=== PATIENT | female | born 1990 | race Caucasian/White ===

== ENCOUNTER 2018-08-16 19:34 | Emergency (ER) | payer OTHER, SELFPAY ==
[2018-08-16 19:34] VITALS: BP 152/86; PULSE 87; RESP 16; TEMP 36.1; O2SAT 98; BMI 22.7
[2018-08-16 20:26] VITALS: RESP 16
[2018-08-16 20:45] LABS: Absolute Lymphocyte Count 2.12 X10^3/ul (0.83-4.51); Absolute Neutrophil Count 3.9 X10^3/uL (2.0-7.7); Basophil# 0.03 X10^3/uL; Basophil% 0.4 % (0-1); Eosinophil# 0.13 X10^3/uL; Eosinophils% 1.9 % (0-5); Hemoglobin 10.7 g/dl (12.0-15.0); Lymphocyte # 2.12 X10^3/ul (4.0); Lymphocyte % 31.7 % (19-41); Mean Corp Hgb Conc 31.5 g/gl (32-36); Mean Corpuscular Hgb 27.9 pg (27.0-32.0); Mean Corpuscular Volume 88.5 fL (81-99); Mean Platelet Vol. 10.1 fl (6.2-12.0); Monocyte# 0.46 X10^3/uL; Monocyte% 6.9 % (0-10); Neutrophil # 3.92 X10^3/uL (2.7-7.7); Neutrophil % 58.8 % (47-70); Platelet Count 384 K/mm3 (150-450); RBC Distribution Width CV 14.7 % (11.6-14.6); RBC Distribution Width SD 46.6 fl (35.1-43.9); Red Blood Count 3.84 M/mm3 (4.2-5.4); White Blood Count 6.7 K/mm3 (4.4-11.0)
[2018-08-16 20:46] LABS: POSITIVE COUNT NO; POSITIVE DIFFERENTIAL NO; POSITIVE MORPHOLOGY NO
[2018-08-16 20:54] LABS: Bacteria 0 SEEN /hpf (None Seen); Color, Urine Yellow (Yellow); Glucose, Dipstick Normal (Normal); Ketone-Dipstick Negative (Negative); Leukocyte Esterase-Dipstick 25 /ul (Negative); Mucous, Urine 0 SEEN /hpf (<or=2+); Nitrite-Dipstick Negative (Negative); Occult Blood-Urine Negative /ul (Negative); Protein-Dipstick Negative (Negative); Red Blood Cells-Urine 0 SEEN /hpf (0-5); Specific Gravity, Urine 1.005 (1.002-1.030); Urine Bilirubin Dipstick Negative (Negative); Urine Clarity Sl. Cloudy (Clear); Urine Urobilinogen Normal (Normal)
[2018-08-16 20:59] LABS: AST(SGOT) 15 U/L (15-37); Alanine Aminotransfer ALT/SGPT 20 U/L (13-56); Albumin, Serum 3.4 g/dL (3.2-5.0); Alkaline Phosphatase 54 U/L (45-117); Anion Gap 7 (5-15); BUN 12 mg/dL (7-18); BUN/Creat Ratio 18.6 RATIO (10-20); Bilirubin, Direct 0.07 mg/dL (0.00-0.30); Calcium,Total 8.5 mg/dL (8.5-10.1); Chloride 108 mmol/L (98-107); Creatinine, Serum 0.65 mg/dL (0.55-1.02); EST Glomerular Filtration Rate 114 mL/min (>60); Est Glom Filt Rate - Afr Amer 138 mL/min (>60); Estimated Creatinine Clearance 123.07 ml/min; Globulin 3.1 g/dL (2.2-4.2); Glucose 96 mg/dL (74-106); Potassium 3.9 mmol/L (3.5-5.1); Protein, Total 6.5 g/dL (6.4-8.2); Sodium Level 139 mmol/L (136-145)
[2018-08-16 21:04] LABS: Squamous Epithelial Cells - UA 0-5 SEEN /hpf (5-10); White Blood Cells 0-5 SEEN /hpf (0-5)
[2018-08-16 21:07] LABS: Pregnancy, Serum, hCG Quali. NEGATIVE Negative (0-9 Nonpreg)
[2018-08-16] MEDS: 0.9% Normal Saline 1,000 ML 150 ML IV (21:23)
--- NOTE | 2018-08-16 21:28 | ED.VISSUMM ---
- ER Visit Summary Date of Service: 08/16/18 Chief Complaint: Sinus problems History of Present Illness: The patient is a 28 F with a history of bipolar disorder. Patient was discharged from a [facility] in [place] last week. She presents feeling tired, congestion, difficulty breathing through her nose, and increased salivation in her mouth. She is also complaining of her neck feeling weak. Patient states while in the hospital her lithium dose was decreased. She was also started on Invega, Risperdal, and trazodone. She is not sure if she has a sinus infection or if this is potentially side effects of her medication. She is scheduled to see the counseling center next week. She has not had fever or chills. Physical Examination: Blood pressure is 152/86, other vitals normal. Patient is lying in bed. She is in no acute distress. Head neck examination reveals TMs to be clear bilaterally. She has moist mucous membranes. No cervical lymphadenopathy. No significant tenderness over the sinuses. Heart is regular rate and rhythm. Lungs sounds are clear. Abdomen is soft nontender. Test Results: CBC was normal white count with hemoglobin 10.7. Chemistry studies normal. LFTs and lipase normal. Urinalysis normal. test negative. [place] level is 0.20. Emergency Department Course and Treatment: I did review the common side effects of the medications she is currently on. Multiple of these medications cause somnolence, URI symptoms, and sialorrhea. I advised her I do not believe she is an acute sinus infection, but is experiencing some side effects of her new medications. She will be given nasal spray to help open her nasal passages. She is to follow-up with the counseling center this week as planned. Treatment Plan: [] Disposition: Discharge Impression: 1. Viral URI 2. Medication side effects This note was generated with [employer] dictation software. It may contain incorrect words, spelling, and punctuation that were not noted in review of the chart prior to signing ED Disposition - Plan for ED Patient: Disposition: Home or Assisted Living Chief Complaint: Cold Sx Instructions: ED Drug React Adverse Other, ED URI Viral Referrals: Counseling,Center [GROUP OF PHYSICIANS] - Keep Waqas appointment
--- NOTE | 2018-08-16 21:28 | ED.DEP ---
ED Disposition - Plan for ED Patient: Disposition: Home or Assisted Living Chief Complaint: Cold Sx Instructions: ED URI Viral, ED Drug React Adverse Other Referrals: Counseling,Center [GROUP OF PHYSICIANS] - Keep Waqas appointment
[2018-08-16 21:31] VITALS: PULSE 71; RESP 16; O2SAT 99
== END 2018-08-16 21:37 | disposition home or self-care (01) ==
PROVIDERS: Emergency Provider Emergency Medicine
DX: J06.9 Acute upper respiratory infection, unspecified (principal); K11.7 Disturbances of salivary secretion; R40.0 Somnolence; T43.595A Adverse effect of other antipsychotics and neuroleptics, initial encounter; T43.215A Adverse effect of selective serotonin and norepinephrine reuptake inhibitors, initial encounter; F31.9 Bipolar disorder, unspecified; K21.9 Gastro-esophageal reflux disease without esophagitis; Z72.0 Tobacco use; Z79.899 Other long term (current) drug therapy
CPT/HCPCS: 80048; 80076; 80178; 81001; 84703; 85025; 96360; 99284; J7030; J7040; A4216

== ENCOUNTER 2018-10-01 09:18 | Emergency (ER) | payer MEDICAID, SELFPAY ==
[2018-10-01] VITALS (7 sets, daily range): BP systolic 117–145; BP diastolic 61–90; PULSE 67–100; RESP 16–18; TEMP 36.9; O2SAT 96–99; BMI 23.8
--- NOTE | 2018-10-01 10:01 | NURSING ---
CALLED CRISIS ABOUT PATIENT PER DR RONDON
--- NOTE | 2018-10-01 10:11 | ED.DCSUM_ITS ---
- ER Visit Summary Date of Service: 10/01/18 Chief Complaint: Depressed and suicidal History of Present Illness: The patient is a 28 F history depression and bipolar disorder. Patient states she had exacerbation of bipolar about 6 weeks ago where she was manic and had to be hospitalized. Now she states she is depressed and suicidal. No specific inciting event. She has been depressed and suicidal before but is never had any prior attempts. States that she does think about it now but is made no attempt. She is currently on lithium and Risperdal and states she is taking her medications. She sees a counseling center. Physical Examination: Young female no acute distress. Vital signs are stable and afebrile. No signs of toxidrome. No smell of alcohol. She is lying in bed. She is not violent or verbally abusive. Family members in the room. HEENT exam unremarkable. No signs of trauma to her face. Moist mucous membranes. Neck nontender. No signs of ligature tubbs. Lungs clear to auscultation bilaterally. Chest nontender. Heart regular rate and rhythm no murmur. Abdomen soft nontender. Patient is moving all 4 extremities. Neurovascularly intact. Nontender no edema. No signs of track tubbs. No signs of cutting or trauma or scars. Back nontender. Neurologically she is awake and alert with no focal motor deficits. Test Results: ED mental health screening labs. CBC White count 6. Hemoglobin 9.8. Electrolytes unremarkable. Normal gap. Normal creatinine. Serum test negative. Tox and alcohol level are negative. Emergency Department Course and Treatment: ED mental health labs and crisis evaluation. Repeat exam patient is doing well 1144. She is already spoken with counseling center personnel and they believe she needs to be admitted. I am comfortable with that plan. Treatment Plan: Transfer to psychiatric facility. Disposition: [] Impression: Acute exacerbation of bipolar disorder Depression Suicidal ideation This note was generated with [employer] dictation software. It may contain incorrect words, spelling, and punctuation that were not noted in review of the chart prior to signing ED Disposition - Plan for ED Patient: Chief Complaint: Suicidal Referrals: Care Physician,No Primary [Primary Care Provider] -
[2018-10-01 10:21] LABS: Absolute Lymphocyte Count 1.43 X10^3/ul (0.83-4.51); Absolute Neutrophil Count 4.2 X10^3/uL (2.0-7.7); Basophil# 0.04 X10^3/uL; Basophil% 0.6 % (0-1); Eosinophils% 1.6 % (0-5); Hematocrit 37.6 % (37-47); Hemoglobin 11.8 g/dl (12.0-15.0); Lymphocyte # 1.43 X10^3/ul (4.0); Lymphocyte % 23.1 % (19-41); Mean Corp Hgb Conc 31.4 g/gl (32-36); Mean Corpuscular Hgb 27.6 pg (27.0-32.0); Mean Corpuscular Volume 87.9 fL (81-99); Mean Platelet Vol. 9.5 fl (6.2-12.0); Monocyte% 6.5 % (0-10); Neutrophil # 4.22 X10^3/uL (2.7-7.7); Platelet Count 346 K/mm3 (150-450); RBC Distribution Width CV 14.5 % (11.6-14.6); RBC Distribution Width SD 46.4 fl (35.1-43.9); Red Blood Count 4.28 M/mm3 (4.2-5.4); White Blood Count 6.2 K/mm3 (4.4-11.0)
[2018-10-01 10:22] LABS: Anion Gap 6 (5-15); BUN 12 mg/dL (7-18); Calcium,Total 9.1 mg/dL (8.5-10.1); Chloride 110 mmol/L (98-107); Creatinine, Serum 0.71 mg/dL (0.55-1.02); EST Glomerular Filtration Rate 103 mL/min (>60); Est Glom Filt Rate - Afr Amer 125 mL/min (>60); Estimated Creatinine Clearance 112.67 ml/min; Glucose 87 mg/dL (74-106); Potassium 4.1 mmol/L (3.5-5.1); Sodium Level 141 mmol/L (136-145)
[2018-10-01 10:24] LABS: POSITIVE COUNT NO; POSITIVE DIFFERENTIAL NO; POSITIVE MORPHOLOGY NO
[2018-10-01 10:28] LABS: Pregnancy, Serum, hCG Quali. NEGATIVE Negative (0-9 Nonpreg)
--- NOTE | 2018-10-01 10:37 | NURSING ---
SURY, SARAH, CALLED. SHE WILL BE IN WITHIN THE HOUR
--- NOTE | 2018-10-01 11:16 | NURSING ---
SURY, CRISIS, HERE
[2018-10-01 11:23] LABS: Amphetamine Urine VISTA NEGATIVE (<1000 ng/mL); Barbiturate Urine VISTA NEGATIVE (< 200 ng/mL); Benzodiazepine Urine VISTA NEGATIVE (< 200 ng/mL); Cocaine Urine VISTA NEGATIVE (< 300 ng/mL); Ecstacy Urine VISTA NEGATIVE (< 500 ng/mL); Methadone Urine VISTA NEGATIVE (< 300 ng/mL); PCP Urine VISTA NEGATIVE (< 25 ng/mL); THC Urine VISTA NEGATIVE (< 50 ng/mL); Vista UDS pH Range 7
--- NOTE | 2018-10-01 15:56 | NURSING ---
ACCEPTED AT [facility]
--- NOTE | 2018-10-01 16:15 | NURSING ---
1605 CALLED [facility]. ETA IS 20 TO 30 MIN
== END 2018-10-01 16:49 | disposition short-term general hospital (02) ==
PROVIDERS: Emergency Provider Emergency Medicine
DX: F31.9 Bipolar disorder, unspecified (principal); R45.851 Suicidal ideations; K21.9 Gastro-esophageal reflux disease without esophagitis; Z79.899 Other long term (current) drug therapy
CPT/HCPCS: 80048; 80178; 80307; 80320; 84703; 85025; 99284; G0480

== ENCOUNTER 2018-10-15 09:00 | Outpatient (RCR) | payer MEDICAID, SELFPAY ==
[2018-10-01 09:19] VITALS: BMI 23.8
--- NOTE | 2018-10-15 09:02 | BH.SGPN.GN ---
Behaviors/Verbalizations/Mental Status: []Client alert and oriented, neatly and casually dressed and groomed. Eye contact good. Motor activity appropriate. Speech within normal limits. Affect congruent, mood euthymic. Thoughts linear and logical, no signs of hallucinations or delusions. Client Response/Progress/Benefit: []Pt responded well to session as shown by pt listening attentively to others and sharing her feelings with group. Pt reported one of of her mental health wins was being able to write a 12,000 word short story/novel, which pt reported writing is something she has not been able to do due to mental health symptoms. Pt stated another mental health win is preparing her own breakfast and lunches instead of relying on her parents to take care of her. Pt stated current stressor is not knowing what to do when has free time because free time can lead to ruminations and unhealthy coping. Pt identified emotion for today as: hopeful. Pt seemed to benefit from support from peers. Pt to continue IOP to increase healthy coping, identify and replace unhealthy thought patterns, and prevent decompensation. Narrative Note: []
--- NOTE | 2018-10-15 10:05 | BH.SGPN.GN ---
Behaviors/Verbalizations/Mental Status: [Client alert and oriented, dress is casual, grooming appropriate. Eye contact fair to good facing away from .net developer. Motor activity appropriate. Speech monotone and slowed. Affect congruent, mood apathetic. Thoughts linear and logical, no signs of hallucinations or delusions.] Client Response/Progress/Benefit: [Client receptive of session, first day in IOP program and stil adjusting to group environment. Client did well in remaining an observant participant as well as provided input throughout. Client willing to participate in discussion regarding what may cause a crisis and potential impacts of crisis situations on various aspects of life. Client shared that crisis ?feels bad in the moment, but we can learn from it? and went on to reflect that ?it?s about your attitude?. Client benefitted from discussion on warning signs for crisis and completing the warning sign identification worksheet. She shared that personal crisis warning signs include changes in appetite, racing thoughts, crying and isolation. Client progress noted in ability provide input and connect with discussion despite it being first day in IOP program. Continued IOP recommended to increase understanding of symptoms and improve symptom management] Narrative Note: []
--- NOTE | 2018-10-15 11:05 | BH.SGPN.GN ---
Behaviors/Verbalizations/Mental Status: []Client alert and oriented, casually dressed, hygiene fair. Eye contact fair. Motor activity slowed. Speech slowed. Affect flat, mood dysthymic. Thoughts linear, logical, no signs of hallucinations or delusions. Client Response/Progress/Benefit: []Client responded well to session, engaged in discussion. Client further processed her personal crisis warning signs and identified her biggest warning signs for depression and marcelo. Client?s biggest warning signs for depression are isolation and loss of interest and for marcelo they are less sleep and racing thoughts. Client shared feeling guilty for not knowing her warning signs sooner, but with group support she was able to be compassionate with herself. Client helped the group identify healthy coping skills to manage her warning signs such as deep breathing, reaching out to supports, and meditation. ?Client created a crisis kit with visuals that will remind client of healthy coping skills she can use in crisis. Client?s reported her objects will ?remind me to pay attention to warning signs and what I need.? Client appeared to benefit from creating a concrete action plan for warning signs and developing a crisis kit with reminder visuals. Client?s first day in IOP. Client to continue IOP to prevent decompensation and increase mood stability.
--- NOTE | 2018-10-16 09:21 | BH.SGPN.GN ---
Behaviors/Verbalizations/Mental Status: [Client eye contact fair to good, casually dressed, motor activity appropriate, speech monotone, slowed, mood dysthymic and appearing apathetic, congruent affect, thoughts linear and intact, no evidence of delusions or hallucinations] Client Response/Progress/Benefit: [Client receptive of session and providing input throughout as well as asking questions at various points. Client provided input to discussion reviewing the benefits of setting goals and comparing short and long-term goals. Client identified a benefit to goal setting as increasing the likelihood of working towards and accomplishing things, went on to identify that goals help hold us accountable. Identified personal barriers to following through with goals as being uninspired or lacking motivation. Client participated in the review of SMART goal setting criteria and provided insight into the various component of SMART goals. Noted that she connected with the need for goals to be timebound to ensure active progress towards them. Client seemed to benefit from rehearsing setting short-term SMART goals in the group activity and displayed progress in her ability to provide suggestions to the group during the activity. Continued IOP tx to promote increased use of healthy coping, decrease depression, and expand support network.] Narrative Note: []
--- NOTE | 2018-10-16 10:20 | BH.SGPN.GN ---
Behaviors/Verbalizations/Mental Status: [Client eye contact fair to good, casually dressed, motor activity appropriate, speech monotone, slowed, mood dysthymic and appearing apathetic, congruent affect, thoughts linear and intact, no evidence of delusions or hallucinations.] Client Response/Progress/Benefit: [Client was an active participant in group activity and discussion. Client created a mental health related SMART goal for herself to accomplish over the weekend which was to write for 2 hours by Saturday. Reported she believes that this goal will benefit her by increasing confidence and working towards re-engaging in activities she enjoys. Identified obstacles to obtaining her goals as well as solutions to those obstacles. Noted being uninspired as an obstacle but shared that completing a short writing exercise may help inspire her to write. Group provided feedback on if this goal was SMART and client receptive of feedback provided. Benefited from group in regards to education on developing specific, measurable, achievable, relevant, and time-bound goals. Will continue in IOP to prevent decompensation, stabilize mood, and increase coping skills. ] Narrative Note: []
--- NOTE | 2018-10-16 12:49 | BH.PSA_ITS ---
Source of Information - Presenting Problems/Circumstances Problems, Referral Source, Mental Status, Client: Client is a 28-year-old female with a history of bipolar disorder who was referred to [facility] after a recent admission to [facility] for suicidal ideation. Client's most recent hospitalized was from 10/01/18-10/09/18, but she also had a prior hospitalization in July 2018 in [place] due to a manic episode. Client reports history of severe depressive symptoms following episodes of marcelo. Client reported after d ischarging in July her depressive symptoms began to decompensate and she experienced suicidal ideations with a plan in September. Client was stabilized and they got my meds figured out. Client shared since being discharged on 10/09/18 her mood has improved. Client had to move back to [place] to live with her parents to stabilize symptoms after her manic episode in July. Client denies active suicidal ideations, plan, or intent. client denies homicidal ideations. Client denies current substance use. Due to recent psychiatric admission, client would benefit from step down treatment and [facility] level of care. Client cooperative during assessment. Eye contact fair, motor activity slowed. Affect flat, mood dysthymic. Psychiatric Presentation - Psych Issues & Need for Admission Psychiatric Issues:: bipolar 1 disorder, recent depressive episode and inpatient hospitalization; history of three manic episodes, History of marcelo with psychosis, paranoia, disordered thinking, obsessions; marijuana use. Past Psychiatric History - Treatment Hx Treatment History: Client has a history of bipolar disorder and reports history of three manic episodes in her life. Client has two recent hospitalizations, one in July 2018 for a manic episode where client was treated in [place]. The other was in September 2018 at [facility] for a depressive episode with suicidal ideation. Client reports several hospitalizations including four in [place] and one in [place]. Client was first treated for mental health when she was in the 8th grade due to migraine headaches, which her doctors thought had a psychological component. Client was initially treated with antidepressants by her primary care physician many years ago. Client has been on lithium for 2 years, but it has not managed her manic episodes very well by itself. Client is currently seeing a nurse practitioner, Kailey Murillo, at [facility] for medication management. Client does not have an individual outpatient therapist. First hospitalization:: [place]- 2012 Most recent hospitalization:: October 01, 2018- October 09, 2018 Medication Trials:: Yes - initially treated with antidepressants years ago. ECT Therapy:: No Age of first mental health symptoms: Client reported she first started seeing a therapist and taking antidepressants in 8th grade because of problems with migraine headaches. Client shared her doctors thought there was a psychological component. Client reported some milder depression and anxiety while in high school and during college. Client stated her anxiety made school challenging at times. Describe (age, circumstance, etc) any past hospitalizations: Client reported her first manic episode was in 2012 during which time client was hospitalized. Client described her manic episodes as not eating, not sleeping, obsessed with certain people, mistrustful and paranoid and constantly changing topics. Current providers for mental health treatment (counselor, psychiatrist, family caseworker, etc.): Client does not have an outpatient therapist at this time. Client sees Kailey Murillo at [facility] for medication management. Development & Family of Origin - Childhood Significant Childhood Events: Client described her childhood as pretty normal. Client shared her parents both had some health issues when she was growing up that probably impacted me then, but not now. Client denied childhood trauma or abuse. - Family Who currently lives in your home?: Client was living in [place], but after being hospitalized moved home to [place], [place] to live with her parents. Client is staying with her mother and father while she works to achieve mood stability. Describe family composition:: Client is the youngest of three children and has two older sisters. Client described their relationship as pretty good. Client grew up with her sisters and her parents in [place]. Client describes her relationship with her parents as good. Client has never been and does not have children. Client has a boyfriend who she met in college. The two have been together for 12 years. Client shared they have a good relationship and she misses him as he is still back in [place]. - Family History Family Hx of Psychiatric or AOD Problems: Oldest sister- history of bipolar and substance abuse (cold pills) per client report. Middle sister- history of depression, anxiety, and substance abuse. Mother- history of anxiety. Father- history of anxiety and depression. Maternal grandfather- history of bipolar disorder Ethnicity - Culture Do you identify yourself with any particular cultural, ethnic background, or community?: No - Sexuality Sexual Orientation: Heterosexual Spirituality - Sabianist Do you currently identify with any organized anglican?: None - Beliefs Is there a particular form of support from this community you can use for your recovery?: No Mental Status - Memory Recent Memory: Good Remote Memory: Poor - Concentration Concentration: Fair - Eye Contact Eye Contact: Good - Speech Speech: Slow - Thought Process Thought Process: Logical Insight: Fair - limited to fair Judgment: Fair Behavior: Anxious - Orientation Orientation: Time, Person, Place, Situation - Appearance Appearance: Appropriate - Mood Mood: Anxious, Depressed - Affect Affect: Constricted Suicide Assessment - Suicidal Ideation Have you ever felt like hurting yourself?: Yes Were you using ETOH/drugs at the time?: No Suicidal Intentional Rating Scale (SIRS): Suicidal thoughts (past) - Client shared she has not had suicidal thoughts in approximately two weeks. Physician Notification: If Active suicidal thoughts/Will not contract for safety is checked, contact physician and document in the Physician Notification section below. Violent Behavior/Abuse History - Homicidal Ideation Do you have any homicidal thoughts? If so, explain:: No Is there a known potential victim? If yes, who:: No - Abuse Have you ever been abused?: No Please explain:: Client denies history of trauma and abuse. - Life Events Are there any other significant life events?: Financial loss - Client is currently unemployed and is hoping to apply for SSI. Client has not worked since this past summer., Hardships - Client reports missing her boyfriend of 12 years as he is back in [place] while client is in [place]. - Safety Do you ever feel threatened in your home? If yes, describe:: No Adult Social History - Age 16 to Present Describe your current support system:: Client identified her boyfriend as her primary support. Client also identified her parents, her sisters, and her best friend who lives in [place] as supports. Substance Use - Substance Substance Use Type: Alcohol - client shared she has a hard time knowing my limits with alcohol., Marijuana - Client reports belief she was self- medicating with marijuana for two months earlier this year., Tobacco - history of smoking one a day for a few months. - Specific Drugs What specific drugs have you used?: alcohol, marijuana, and cigarettes - Extent of Use What quantity of substances have you used?: Client reported two months ago she was self-medicating with marijuana and would smoke a lot meaning multiple times daily. Client reported she has struggled with limited her alcohol intake in the past, but she shared she mostly has a few drinks a month. Client reported for a brief time she smoked one cigarette a day. - Duration of Use How long have you used substances?: unable to gather at time of assessment. - Last Usage What is the date and situation you last used?: Client denies any current substance use. Client reports last smoking marijuana two months ago in [place]. Client would smoke multiple times a day at home. Client last drank a few months ago. Client has not smoked cigarettes recently. - Withdrawal History Comments:: denies - IV Substance Use Do you have a history of IV use?: denies Leisure/Social Activities - Interests What do you enjoy or might be interested in learning about?: Client reported she enjoys writing and spending time with her boyfriend. Client is interested in learning how to cook and in taking drawing classes. Education & Occupational Histo - Education What is your level of education?: Bachelor Degree - Client graduate from [employer] with a degree in Albanian and Portuguese literature. Do you have any learning disabilities?: Yes - pt. reported anxiety made it hard for her to learn - Occupation List any current or past employment:: Client is currently unemployed and plans to apply for SSI. 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 List any previous volunteering you may have done:: none reported Service - Service Have you ever been in the ?: No Legal History - Records Have you had any past legal charges?: No Do you have any current legal charges?: No Have you ever been incarcerated? If yes, describe:: No - Court Orders Have you had any past court orders for psychiatric treatment?: No Do you have a present court order for psychiatric treatment?: No Problem Checklist - Current Problem Areas Problem List: Nutritional/Eating pattern changes - client reports decreased eating when manic, Pain management - my neck always hurts., Depressed mood/sad - continues to have days when she feels down and unmotivated, Anxiety - Reported feeling anxious and restless during the day. Per client's report, her anxiety makes it difficult for client to think. Client reports history of panic attacks as a side effect of a medication., Anger/aggression - client reports increased irritability when she is manic, Inattention - difficult to concentrate over the last month, Impulsivity - client reports history of increased risk taking through being overly trustful of strangers., Psychosis - Client stated history of paranoid delusions when manic., Mood swings/hyperactivity - Symptoms of manic episodes include not eating, not sleeping, obsessed with certain people, paranoid and constantly changing topics., Substance use - history of self-medicating with marijuana. Client also reports past difficulty with limiting her alcohol intake., Sleep problems - client reports lack of sleep when manic, Additional psychosocial stressors - Recently moved back to [place] from [place], is currently unemployed, and is not living in the same state as her boyfriend. Additionally, client has had two psychiatric hospitalizations in the past two months. Discharge Planning Needs - Anticipated Follow-Up Mental Health Center (Name/Phone Number):: [facility] [phone] Private Therapist/Psychiatrist:: Kailey Murillo at [facility] Other (to be determined): no PCP Family and Caregiver Contacts:: Mojgan Marquez- Mother Release of Information Signed:: No - [phone] Community Agency Contacts: [facility] Activity Therapy Specialist Name/Phone Number: n/a Process Trainer's Assessment - Client's Needs What are the client's feelings about the program?: Client stated she hopes the program can help her learn coping skills and help client establish a routine. Client reports somewhat connecting to the topics. What are the client's goals?: Client reported she would like to increase coping skills and create a more structured daily routine. What are the client's strengths?: Client stated since discharging from [facility] and adjusting her medications, her symptoms have reduced, and her mood has improved. Client presents as motivated and willing to engage in her treatment. Client reports she is intelligent, resilient, and kind. Client states mindfulness, worksheets, and meditating have helped client cope with her mental health in the past. Client reports having a good support network which includes her parents, sisters, and boyfriend of 12 years. Diagnoses - Diagnoses Diagnosis #1:: Bipolar 1 with psychotic features, most recent episode depressed F31.75 Diagnosis #2:: History of cannabis abuse, in remission Interpretive Summary - Interpretive Summary Interpretive Summary: Client is a 28-year-old female with a history of bipolar disorder who was referred to [facility] after a recent admission to [facility] for suicidal ideation with a plan. Client's most recent hospitalized was from 10/01/18-10/09/18, but she also had a prior hospitalization in July 2018 in [place] due to a manic episode. Client has had three manic episodes in her life and reports history of severe depressive symptoms following episodes of marcelo. Client reported after discharging in July her depressive symptoms began to decompensate and she experienced suicidal ideations with a plan in September. Client denies history of suicide attempts. Client was stabilized and they got my meds figured out. Client shared since being discharged on 10/09/18 her mood has improved. However, client continues to struggle with concentration, lack of motivation, and low energy. Client had to move back to [place] to live with her parents to stabilize symptoms after her manic episode in July. Client reported history of manic episodes in which client has decreased eating and sleeping, increased trust of strangers, paranoid delusions, and loose associations. Per client?s report., she does not remember her manic episode and that ?people had to tell me.? Client denies active suicidal ideations, plan, or intent. Client denies homicidal ideations. Client has a history of self- medicating with marijuana, but she denies currently using marijuana. Client reports family history of substance abuse. Client also reports family history of depression, anxiety, and bipolar disorder. Client denies any abuse and trauma and described her childhood as ?normal.? Client?s symptoms have impacted her ability to function at her baseline as well as her social and occupational functioning. Due to recent psychiatric admission, client would benefit from step down treatment and [facility] level of care. Treatment Plan Recommendations - Recommendations Guidelines: Special needs identified to be included in the development of an individualized treatment plan regarding past psychiatric history and treatment, developmental events, family relationships/events/culture, past and/or current educational, occupational, social, and residential experience, and legal status. Recommendations:: Client to be admitted to [facility] following recent psychiatric hospitalization as the structured setting is necessary to prevent decompensation. Client and IOP psychiatrist discussed medication and client was recommended to continue her current doses of [employer], Risperdal, and Lamictal as prescribed. Client encouraged to establish outpatient counseling for time of IOP discharge. Client encouraged to continue seeing Kailey Murillo at [facility] for medication management. Client agreeable to plan.
--- NOTE | 2018-10-16 12:49 | BH.MTP_ITS ---
Master Treatment Plan - Patient Information Program Physician:: Warren Feliciano Primary Therapist:: Rema Eid - Psychiatric Diagnoses Psychiatric Diagnoses:: Bipolar 1 with psychotic features, in partial remission, most recent episode depressed; history of cannabis abuse, in remission Diagnosis Code(s):: F31.75 - Estimated LOS Estimated LOS (in weeks):: 6 Problem/Goal #1 - Problem/Goal #1 Stated Goal:: Client will increase mood stability and prevent decompensation of depressive symptoms and suicidal ideation. Description of Barriers: Client reports history of medication noncompliance as client has stopped taking medication before when she starts to feel better. Client shared she cannot remember her symptoms of marcelo and that her supports had to tell her. This may allude that client has fair insight to her early warning signs, triggers, and healthy coping skills. Client has a history of se veral hospitalization for mood symptoms which may be contributed to client's report of limited awareness, medication noncompliance, and limited internal coping skills. Client could benefit from creating a maintenance plan to prevent further hospitalizations. Client is currently living in [place] and she does not have an established schedule or routine. Additionally, client is not able to see her boyfriend, who lives in [place] and is a major support, as often. Functional Impact: Client is a 28-year-old female with a history of bipolar disorder. Client has had two recent inpatient hospitalizations since July 2018. Client's hospitalization in July was due to manic episode followed by a hospitalization in September due to depression with suicidal ideation. Client reports three manic episodes in her life in 2012, 2014, 2017. Client reports she has a hard time remembering her manic symptoms and once I have racing thoughts there is nothing I can do... I just need professional help. Client reported her symptoms were impacting her ability to function at her baseline as client was not eating, sleeping, or performing daily tasks. Client recently had to move home to [place] from [place] to live with parents and stabilize her symptoms. Client reports since change in medication her mood has improved, but she wants to continue to increase mood stability. Goal Relevant Strengths/Supports: Client stated since discharging from [facility] and adjusting her medications, her symptoms have reduced, and her mood has improved. Client presents as motivated and willing to engage in her treatment. Client reports she is intelligent, resilient, and kind. Client states mindfulness, worksheets, and meditating have helped client cope with her mental health in the past. Client reports having a good support network which includes her parents, sisters, and boyfriend of 12 years. - Objectives Objective #1 Stated Objective: Client will increase stable mood AEB client's score on the DSM-5 cross-cutting measure for depression and marcelo as well as improvement in client's daily functioning. Interventions: Through groups and individual therapy, client will be provided with education on cognitive distortions, mistaken beliefs, and identifying and combating negative self-talk that reinforce depressive symptoms. Therapist will assist client with getting back into the activities she once enjoyed as well as increasing healthy coping strategies. Discharge Criteria: Client will have met this goal when client's scores on the DSM 5 cross cutting measure for depression and marcelo have been maintained or decreased and per client's report daily functioning has improved. Target Date: 11/26/18 Review Date: 11/14/18 Status: open Objective #2 Stated Objective: Client will identify 2-3 triggers and 2-3 coping skills to reduce depressive symptoms that lead to suicidal thinking and low motivation. Interventions: Therapist will help client develop insight into her mental health triggers and help her find strategies to help manage her symptoms. Therapist will teach client internal and external coping skills to increase client's internal locus of control. Therapist will encourage client to practice healthy coping skills daily to utilize open communication with supports. Discharge Criteria: Client will have accomplished this goal when she can identify at least 2 triggers and report using 2 coping skills to manage symptoms. Target Date: 11/26/18 Review Date: 11/14/18 Status: open Problem/Goal #2 - Problem/Goal #2 Stated Goal:: Client will increase healthy coping skills and medication compliance to promote mood stability and recovery. Description of Barriers: Client reports history of medication noncompliance as client has stopped taking medication before when she starts to feel better. Client shared she cannot remember her symptoms of marcelo and that her supports had to tell her. This may allude that client has fair insight to her early warning signs, triggers, and healthy coping skills. Client has a history of several hospitalization for mood symptoms which may be contributed to client's report of limited awareness, medication noncompliance, and limited internal coping skills. Client could benefit from creating a maintenance plan to prevent further hospitalizations. Client is currently living in [place] and she does not have an established schedule or routine. Additionally, client is not able to see her boyfriend, who lives in [place] and is a major support, as often. Functional Impact: Client is a 28-year-old female with a history of bipolar disorder. Client has had two recent inpatient hospitalizations since July 2018. Client's hospitalization in July was due to manic episode followed by a hospitalization in September due to depression with suicidal ideation. Client reports three manic episodes in her life in 2012, 2014, 2017. Client reports she has a hard time remembering her manic symptoms and once I have racing thoughts there is nothing I can do... I just need professional help. Client reported her symptoms were impacting her ability to function at her baseline as client was not eating, sleeping, or performing daily tasks. Client recently had to move home to [place] from [place] to live with parents and stabilize her symptoms. Client reports since change in medication her mood has improved, but she wants to continue to increase mood stability. Goal Relevant Strengths/Supports: Client stated since discharging from [facility] and adjusting her medications, her symptoms have reduced, and her mood has improved. Client presents as motivated and willing to engage in her treatment. Client reports she is intelligent, resilient, and kind. Client states mindfulness, worksheets, and meditating have helped client cope with her mental health in the past. Client reports having a good support network which includes her parents, sisters, and boyfriend of 12 years. - Objectives Objective #1 Stated Objective: Client will learn and utilize 2-3 healthy coping strategies to proactively manage mood symptoms. Interventions: Therapist will assist client in learning internal coping strategies to manage mood symptoms, along with helping client identify personal warning signs and triggers. Discharge Criteria: Client will have achieved this goal when can verbalize and has practiced at least 2 healthy coping strategies. Target Date: 11/26/18 Review Date: 11/14/18 Status: open Objective #2 Stated Objective: Client will report daily consistency in taking her medication as prescribed by her psychiatrist Interventions: Therapist will help client explore barriers to taking her medication consistently and identify at least 3-4 solutions that will promote medication compliance. Therapist will assist client in identifying and challenging self-talk statements that would reinforce medication noncompliance. Therapist will encourage client to establish a daily routine. Discharge Criteria: Client will have accomplished this goal when she can report taking her medication as prescribed on a daily basis. Target Date: 11/26/18 Review Date: 11/14/18 Status: open
--- NOTE | 2018-10-16 12:49 | BH.MDN ---
Multi-Disciplinary Note - Note 30-min Individual Time Started:: 11:20 Date: 10/16/18 Purpose of session/treatment goals addressed:: The purpose of this session was to build rapport and gather information on client's current stressors, symptoms, and psychosocial concerns. Another goal was to establish treatment goals. Eye Contact:: Good Motor Activity:: Slowed Appearance:: Casual Speech:: Soft - slow to finish sentences Mood:: Anxious, Dysthymic Affect:: Constricted - smiling at times, but overall constricted Thoughts:: Linear, Logical, No evidence of hallucinations/delusions noted Staff Interventions:: Therapist used active listening and open-ended questions to explore client's current stressors, symptoms, psychosocial concerns, and strengths. Therapist used strengths perspective to help client identify resiliency factors and empower client on progress she has made since discharging from [facility]. Therapist explored client?s treatment goals and gathered information on what has helped client in the past. Therapist gave client homework to write out her typical day and to review a coping skills handout. Client Response:: Client responded well to session, open to meeting with therapist. Client reported she came to [facility] due to two recent hospitalizations in the past 2 months. One hospitalization was for a manic episode and her most recent was for a depressive episode. Client shared after I'm manic I get so depressed. Client described her depression as feeling hopeless, worthless, lacking motivation, and having suicidal thoughts. Client reports three manic episodes in her life in 2012, 2014, and 2018. Client stated she feels some guilt associated with the last manic episode because I didn't catch the warning signs early enough. Client shared she has more insight into her manic and depressive warning signs now which she recognizes will promote improved mood stability in the future. Client reports her manic symptoms include increased impulsivity I'm too trusting with strangers as well as paranoid delusions. Client identified numerous supports including her boyfriend of 12 years, her parents, and her sisters. Client stated she has not been able to see her boyfriend in the past two months because of moving to [place] for her mental health. Client acknowledges she can benefit from establishing a routine while she is in [place]. Client shared she responds well to mindfulness, worksheets, and structure in therapy settings. Client receptive to homework provided by therapist. Risks/Concerns:: Client denies suicidal ideation, plan, and intent as of 10/16/18. Client shared she has not had a suicidal thought for approximately two weeks. Progress Toward Goals/Plan:: Limited IOP progress at this time as client started the program yesterday. Client reports her mood has improved since discharging from inpatient at [facility]. Client states her depressive symptoms have decreased in intensity, but she continues to experience symptoms several days of the week. Client also reports symptoms of anxiety several days of the week. Client treatment goals are to establish a better daily routine, develop more consistent mood stability, and learn about healthy coping skills. Client to continue IOP to promote mood stability and better manage symptoms. Time Stopped:: 11:56
--- NOTE | 2018-10-17 10:20 | BH.SGPN.GN ---
Behaviors/Verbalizations/Mental Status: []Client alert and oriented, casually dressed, appeared clean. Eye contact good. Motor activity somewhat restless- shaking her leg throughout session. Speech soft, monotone. Affect flat, mood anxious. Thoughts linear, logical, no signs of hallucinations or delusions. Client Response/Progress/Benefit: []Client responded well to session, mostly a passive participant, but sharing occasionally. Client stated effective communication is important for mental health progress because it allows a person to ?get the help they need? and to get their needs met. Client shared fear, body language, and lack of confidence can lead to ineffective communication and negatively impact mental health. Client helped the group identify and describe the different types of communication styles. Client reported she used to be passive, but now client uses more assertive communication. Client shared ?I used to bottle everything up and let people take advantage of me, but now I open up.? Client reported her boyfriend?s encouragement is what helped her become more assertive. Client appeared to benefit from gaining awareness of how her communication style impacts her mental health and relationships. Progress limited, client?s second day of IOP. Client to continue IOP to increase healthy coping skills and improve mood stability and functioning.
--- NOTE | 2018-10-17 11:25 | BH.SGPN.GN ---
Behaviors/Verbalizations/Mental Status: [Client alert and oriented, casually dressed and appropriately groomed. Eye contact fair to good. Motor activity appropriate. Speech slowed and monotone. Affect congruent, mood euthymic. Thoughts linear, logical, no signs of hallucinations or delusions.] Client Response/Progress/Benefit: [Client responded well to session, engaged throughout activity and providing input throughout discussion regarding communication and communication barriers. Client challenged herself to participate in the activity AEB using clear and specific communication to provide instruction to peers. Client able to make connections between barriers in activity and communication barriers in personal life. Client helped the group identify strategies to improve communication and benefitted from the review of DBT therapy DEAR MAN technique for improving communication. Client shared although it can be hard to be specific with what you are trying to communication, it is important. She went on to indicate that being vague can lead to misunderstanding. Client appears to be progressing in her ability to connect with materials discussed and provide input to the group. Client to continue IOP to promote change behaviors and improve emotion regulation.] Narrative Note: []
--- NOTE | 2018-10-17 11:34 | PCM.HP.BLA ---
History and Physical Date of Admission: 10/15/18 Chief Complaint: The patient is a 28-year old female who is admitted to the intensive outpatient mental health treatment program at [facility]. She has a history of bipolar disorder. History of Present Illness: The patient was referred to us by [facility] following her admission for depression and suicidality in September 2018. She was admitted from 10/01/18 to 10/09/18 for a depressive episode. Prior to admission she was very depressed with thoughts of cutting her wrist. During the admission her dose of Risperdal was decreased to 1mg nightly. Also Lamictal 50 mg twice daily was added. She improved and now is doing fairly well. She said that currently she is a little down because she misses her boyfriend and her home in [place]. Her sleep is good. No evidence for clinical depression. Past Psychiatric History: The patient has a history of both manic and depressed episodes. He was most recently admitted for a manic episode to a hospital in [place] in July 2018. She does not remember her symptoms. Ever, she was told that she was not eating, not sleeping, obsessed with certain people, mistrustful and paranoid and constantly changing topics, unable to stay on topic. She reports 2 prior episodes for marcelo during which she was hospitalized in [place]. Her first manic episode occurred in 2012. Her manic episodes are always followed by depressed episodes. He had one prior hospitalization for severe depression to a hospital in [place]. She reported some milder depression while in high school and also during college. She first received mental health treatment while in the eighth grade because of problems with migraine headaches. Her doctors thought there was a psychological component. Patient has never made any suicide attempts. Was treated with numerous other psychiatric medicines in the past. He has been on lithium for 2 years, but it has not managed her manic episodes very well by itself. She was initially treated with antidepressants by her primary care doctor many years ago. She is currently seeing a nurse practitioner locally who is managing her medications. She is happy with her current medicines. The patient admits that she was noncompliant with her medicines in the past. He has a history of stopping her medicines after she starts to feel better. Current Psychiatric Medications: LIC03 300 mg every morning and 600 mg nightly, Risperdal 1 mg nightly, Lamictal 50 mg twice daily Medical History: The patient has GERD treated with Nexium. She has occasional migraine headaches. Allergies: No known drug allergies. Family Psychiatric History: The patient has an older sister who is bipolar. Another sister has depression and anxiety. Both sisters have problems with substance abuse. There has depression and anxiety. Her mother has anxiety. A grandfather had bipolar disorder. Personal/Social History: Patient is currently staying with her family locally. He has a good relationship with her parents. 2 sisters. Completed a BA degree in M[place]ese and [place] literature. 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 She said her current goal is to achieve Social Security disability benefits. She has never and has no children. She has been together with her boyfriend for the past 12 years, and she reports a good relationship. Substance abuse history: She denies current alcohol issues. She says that she has had trouble limiting her alcohol intake in the past. She used to smoke a lot of marijuana, but denies any recent use. No other illegal drugs. Review of Systems: Psychiatry: No current marcelo, no significant depression. She is not suicidal. There is no psychosis. She is cognitively intact. Constitutional: She is of average weight and her weight has been steady. Energy level is good. She is sleeping well. Neurological: Occasional migraine headaches. All other systems reviewed and are negative. Examination: The patient presents as a pleasant, cooperative woman of average build who is casually dressed and neatly groomed. She is quiet. She demonstrates good social skills. Vital signs height 5 foot 7 inches, weight 150 pounds, respirations 15. Musculoskeletal: No muscle weakness or joint pain. Her speech is fluent and spontaneous. Her language is intact. Judgment and insight are intact. She is alert and oriented x3. Her affect is cordial and appropriate. Normal attention span and concentration. Recent and remote memory are intact. Normal thought processes and abstract reasoning. Associations are intact. There are no hallucinations or delusions and she is not suicidal. She demonstrates normal age-appropriate fund of knowledge. Mental Status Examination: The patient presents as a pleasant, cooperative woman of average build who is casually dressed and neatly groomed. She demonstrates good social skills. Her thoughts are logical and coherent. No current depression or marcelo. She is not suicidal or homicidal. There is no psychosis. She is cognitively intact. Summary: The patient is a 28-year old female referred to our IOP program allowing a psychiatric admission to [facility] depression and suicidality. She has a history of manic depressive illness with both manic and depressed episodes. She is currently euthymic. She is doing well on her medicines. She has a history of noncompliance with medicines after she starts to feel better. He would benefit from ongoing education about her illness and necessity for staying on her medications. She would also benefit from continuing education about avoiding illegal drugs. Diagnoses: [] [place] I: Disorder, currently in remission, most recent episode depressed; history of cannabis abuse, in remission [place] II: [] Deferred [place] III: GERD, migraine headaches Plan: I am continuing the patient's current doses of lithium, Risperdal and Lamictal at their current doses. Patient will participate in our intensive outpatient mental health treatment program. I will see her again as needed for follow-up.
--- NOTE | 2018-10-17 12:04 | HP.PCM_ITS ---
History and Physical Date of Admission: 10/15/18 Chief Complaint: The patient is a 28-year old female who is admitted to the intensive outpatient mental health treatment program at [facility]. She has a history of bipolar disorder. History of Present Illness: The patient was referred to us by [facility] following her admission for depression and suicidality in September 2018. She was admitted from 10/01/18 to 10/09/18 for a depressive episode. Prior to admission she was very depressed with thoughts of cutting her wrist. During the admission her dose of Risperdal was decreased to 1mg nightly. Also Lamictal 50 mg twice daily was added. She improved and now is doing fairly well. She said that currently she is a little down because she misses her boyfriend and her home in [place]. Her sleep is good. No evidence for clinical depression. Past Psychiatric History: The patient has a history of both manic and depressed episodes. He was most recently admitted for a manic episode to a hospital in [place] in July 2018. She does not remember her symptoms. Ever, she was told that she was not eating, not sleeping, obsessed with certain people, mistrustful and paranoid and constantly changing topics, unable to stay on topic. She reports 2 prior episodes for marcelo during which she was hospitalized in [place]. Her first manic episode occurred in 2012. Her manic episodes are always followed by depressed episodes. He had one prior hospitalization for severe depression to a hospital in [place]. She reported some milder depression while in high school and also during college. She first received mental health treatment while in the eighth grade because of problems with migraine headaches. Her doctors thought there was a psychological component. Patient has never made any suicide attempts. Was treated with numerous other psychiatric medicines in the past. He has been on lithium for 2 years, but it has not managed her manic episodes very well by itself. She was initially treated with antidepressants by her primary care doctor many years ago. She is currently seeing a nurse practitioner locally who is managing her medications. She is happy with her current medicines. The patient admits that she was noncompliant with her medicines in the past. He has a history of stopping her medicines after she starts to feel better. Current Psychiatric Medications: LIC03 300 mg every morning and 600 mg nightly, Risperdal 1 mg nightly, Lamictal 50 mg twice daily Medical History: The patient has GERD treated with Nexium. She has occasional migraine headaches. Allergies: No known drug allergies. Family Psychiatric History: The patient has an older sister who is bipolar. Another sister has depression and anxiety. Both sisters have problems with substance abuse. There has depression and anxiety. Her mother has anxiety. A grandfather had bipolar disorder. Personal/Social History: Patient is currently staying with her family locally. He has a good relationship with her parents. 2 sisters. Completed a BA degree in [place] and [place] literature. 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 She said her current goal is to achieve Social Security disability benefits. She has never and has no children. She has been together with her boyfriend for the past 12 years, and she reports a good relationship. Substance abuse history: She denies current alcohol issues. She says that she has had trouble limiting her alcohol intake in the past. She used to smoke a lot of marijuana, but denies any recent use. No other illegal drugs. Review of Systems: Psychiatry: No current marcelo, no significant depression. She is not suicidal. There is no psychosis. She is cognitively intact. Constitutional: She is of average weight and her weight has been steady. Energy level is good. She is sleeping well. Neurological: Occasional migraine headaches. All other systems reviewed and are negative. Examination: The patient presents as a pleasant, cooperative woman of average build who is casually dressed and neatly groomed. She is quiet. She demonstrates good social skills. Vital signs height 5 foot 7 inches, weight 150 pounds, respirations 15. Musculoskeletal: No muscle weakness or joint pain. Her speech is fluent and spontaneous. Her language is intact. Judgment and insight are intact. She is alert and oriented x3. Her affect is cordial and appropriate. Normal attention span and concentration. Recent and remote memory are intact. Normal thought processes and abstract reasoning. Associations are intact. There are no hallucinations or delusions and she is not suicidal. She demonstrates normal age-appropriate fund of knowledge. Mental Status Examination: The patient presents as a pleasant, cooperative woman of average build who is casually dressed and neatly groomed. She demonstrates good social skills. Her thoughts are logical and coherent. No current depression or marcelo. She is not suicidal or homicidal. There is no psychosis. She is cognitively intact. Summary: The patient is a 28-year old female referred to our IOP program allowing a psychiatric admission to [facility] depression and suicidality. She has a history of manic depressive illness with both manic and depressed episodes. She is currently euthymic. She is doing well on her medicines. She has a history of noncompliance with medicines after she starts to feel better. He would benefit from ongoing education about her illness and necessity for staying on her medications. She would also benefit from continuing education about avoiding illegal drugs. Diagnoses: [] [place] I: Disorder, currently in remission, most recent episode depressed; history of cannabis abuse, in remission [place] II: [] Deferred [place] III: GERD, migraine headaches Plan: I am continuing the patient's current doses of lithium, Risperdal and Lamictal at their current doses. Patient will participate in our intensive outpatient mental health treatment program. I will see her again as needed for follow-up.
--- NOTE | 2018-10-17 13:46 | BH.DR.ITP ---
Initial Treatment Plan - Patient Information Visit Information: ADMISSION DATE: 10/15/18 EXPECTED LOS: 4-6 weeks Diagnoses:: bipolar disorder - Problems/Symptoms Problem #1:: history of marcelo and depression Symptom:: history of depression, suicidality, low mood. History of marcelo with psychosis, paranoia, disordered thinking, obsessions Problem #2:: History of medication non-compliance Symptom:: Thinks she is doing well and stops meds Problem #3:: history of cannabis abuse Symptom:: smokes MJ
--- NOTE | 2018-10-20 10:27 | BH.COMM ---
Communication Note - Communication with Client Communication Note: Therapist spoke with client on the phone regarding client's thoughts on treatment moving forward. Client reported she would like to discharge from IOP at this time as she reports belief her problem is chemical related and I don't really have issues with coping skills. Therapist attempted to explore potential benefits of ongoing IOP level of care such as preventing decompensation, establishing mood stability, and creating routine. However, client shared belief she does not need IOP level of care at this time. Client to follow up with Kailey Murillo at [facility] for medication management. Client declined to be connected to outpatient counseling sharing therapy isn't effective for me. Therapist wished client well in her mental health recovery.
--- NOTE | 2018-10-20 10:37 | BH.DS ---
Discharge Summary - Demographics Date of Admission:: 10/15/18 Discharge Date: 10/20/18 Presenting Problems at Admission:: Client is a 28-year-old female with a history of bipolar disorder. Client has had two recent inpatient hospitalizations since July 2018. Client's hospitalization in July was due to a manic episode followed by a hospitalization in September due to depression with suicidal ideation. Client reports three manic episodes in her life in 2012, 2014, 2017. At admission, client reported she has a hard time remembering her manic symptoms and once I have racing thoughts there is nothing I can do... I just need professional help. Prior to admission, client shared her symptoms were impacting her ability to function at her baseline as client was eating and sleeping less, was more impulsive, and was not performing daily tasks. Client recently had to move home to [facility] to live with parents to stabilize her symptoms. Client reports since discharge from [facility] and changes made to her medication her mood has improved, but she wanted to continue to increase mood stability. Discharge Diagnoses:: Bipolar 1 with psychotic features F31.75, in partial remission, most recent episode depressed; history of cannabis abuse, in remission Reason for Discharge:: Client voluntarily discharged from [facility] as she reports belief her mental health is chemical related and I don't really have issues with coping skills. Client reported to [facility] therapists that the program was not right for her and that she prefers to manage her mental health without therapy at this time. Additionally, client shared her symptoms were managed effectively with medication at this time. - Treatment Progress During Treatment & Response: Client started [facility] on 10/15/18 and discharged from [facility] on 10/20/18. Due to client only attending three days while in the program there is no progress to document at this time. Client and therapist unable to complete treatment goals. Client appeared to respond well to [facility] for the brief time she was in the program as client was an engaged group member who contributed to discussion. Client also appeared receptive during the one individual session this therapist had with client. Issues Still to be Addressed:: Due to client?s limited time in [facility], client and therapist were unable to make progress on treatment goals. There is a concern post discharge that client may continue to struggle with maintaining stability and medication compliance based on client?s self-reported history. Client shared history of medication noncompliance as client has stopped taking medication before when she starts to feel better. Client also shared she has a hard time recognizing manic symptoms without the help of external support. This may allude that client has fair insight to her early warning signs, triggers, and healthy coping skills. Client can continue to benefit from increasing internal coping skills and self-awareness. Client has a history of several hospitalization for mood symptoms and could benefit from creating a maintenance plan to prevent further hospitalizations. Client reported belief her mental health is ?mainly chemical? and shared that when she experiences certain symptoms there is nothing she can do but seek help. This may indicate that client could increase her internal locus of control to better manage symptoms and maintain stability. Lastly, client chose not to establish outpatient counseling which may impact client?s ability to maintain stability. Discharge Recommendations/Instructions:: Therapist offered to provide client with options for individual counseling in the area, but client declined at this time. Client reported that therapy has not been effective for her in the past. Client recommended to follow up with Kailey Murillo at [facility] for medication management. Client had an appointment today 10/20/18. Discharge Handout: Complete Discharge Handout with client on aftercare options and continuity of care.
--- OUTSIDE RECORDS SUMMARY | 2018-12-17 09:06 | XMS RPT_ITS ---
:1990 Author Organization OHIP Care Team Providers Name Role Phone Primay Care Physicia, No Primary Care Unavailable Yuniel Garsia Attending Unavailable [facility] Care Physicia, No Primary Care Unavailable Keke Clemons Attending Unavailable CIANCONELENORE Attending Unavailable CHARLESONELENORE Referring Unavailable Michelle Trujillo Primary Care Unavailable RUPINDER TORRES Admitting Unavailable MERCEDES FRASER (RES) Attending Unavailable Laura, Dr. Reji Lindsay Admitting Unavailable Laura, Dr. Reji Lindsay Attending Unavailable RUPINDER TORRES Admitting Unavailable IMCA Primary Care Unavailable MERCEDES FRASER Attending Unavailable PROBLEMS PROBLEMS DATE TYPE CONDITION / CODE ATTENDING STATUS SOURCE 10/01/2018 Active Major depressive MERCEDES FRASER Active [facility] disorder, single (RES) Other [place] episode, Repository unspecified / F32.9(ICD-10) 10/01/2018 Admitting Unknown / MERCEDES FRASER Active [facility] diagnosis UNK(Unknown) Health System Repository PROCEDURES PROCEDURES No Procedure Records FoundRESULTS RESULTS PLAN OF CARE Observed: 10/08/2018 Status: COMPLETED Source: [place] 4:46 PM CLINIC OTHER CAMPUS REPOSITORY HNO ID: [id number] Author: Jolene Angeles (Keycase Assembler) Service: (none) Author Type: (none) Type: Plan of Care Filed: 10/08/2018 4:47 PM Note Text: PHARMACY BEDSIDE DELIVERY SERVICE Patient Name: Ramya Marquez The marked outpatient medications were Filled at: [facility] and delivered to the patient's bedside to JACY Steinberg Medication List START taking these medications lamoTRIgine 25 mg tablet Commonly known as: LaMICtal Take 2 tablets by mouth twice daily. CHANGE how you take these medications * lithium carbonate 600 mg capsule What changed: Another medication with the same name was added. Make sure you understand how and when to take each. * lithium carbonate ER 300 mg CR tablet Take 1 tablet by mouth once daily. Start taking on: 10/09/2018 What changed: You were already taking a medication with the same name, and this prescription was added. Make sure you understand how and when to take each. risperiDONE 1 mg tablet Commonly known as: RisperDAL Take 1 tablet by mouth daily at bedtime. What changed: ? medication strength ? how much to take * This list has 2 medication(s) that are the same as other medications prescribed for you. Read the directions carefully, and ask your doctor or other care provider to review them with you. CONTINUE taking these medications MELATONIN 3MG TABLET PO NexIUM 40 mg capsule Generic drug: esomeprazole You might also be taking other medications not listed above. If you have questions about any of your other medications, talk to the person who prescribed them or your Primary Care Provider. STOP taking these medications ELAVIL 10 mg tablet Generic drug: amitriptyline INVEGA SUSTENNA 156 mg/mL Syrg Generic drug: paliperidone palmitate traZODone 50 mg tablet Commonly known as: DESYREL ZOMIG 2.5 mg tablet Generic drug: ZOLMitriptan ZyrTEC 10 mg tablet Generic drug: cetirizine Jolene Angeles (Stupil) PAGER: Phone extension [phone] or call: October 08, 2018 4:46 PM PLAN OF CARE Observed: 10/08/2018 Status: COMPLETED Source: [place] 12:36 PM CLINIC OTHER CAMPUS REPOSITORY O ID: [id number] Author: Juliana Gallagher (Stupil) Service: (none) Author Type: (none) Type: Plan of Care Filed: 10/08/2018 12:37 PM Note Text: Pharmacy Discharge Medication Service: This patient has elected to receive their discharge prescriptions through the [facility] Bedside Prescription Delivery program. The prescriptions are currently being processed. A follow-up note will be entered once the prescriptions have been filled and delivered to the patient. Please contact me with any questions or updates to the patient's discharge medications. Juliana Gallagher (Stupil) DCT Contact Info: extension [phone] or [phone] PLAN OF CARE Observed: 10/08/2018 Status: COMPLETED Source: [place] 12:36 PM [facility] OTHER CAMPUS REPOSITORY HNO ID: [id number] Author: Juliana Gallagher (Stupil) Service: (none) Author Type: (none) Type: Plan of Care Filed: 10/08/2018 12:36 PM Note Text: [facility] BEDSIDE DELIVERY SURVEY 1. Patient to use [facility] Bedside Delivery - YES 2. If fax, patient would like us to fax prescriptions to Pharmacy of choice a. Pharmacy: b. Location: c. Phone: 3. Insurance card on file - YES 4. Credit card for payment - N/A Lamictal 25 mg Risperdal 1 mg Contact Juliana at [phone] with questions prior to discharge SOCIAL WORK Observed: 10/08/2018 Status: COMPLETED Source: [place] 11:30 AM [facility] OTHER CAMPUS REPOSITORY HNO ID: [id number] Author: Malou Mao ([place]) Service: Social Work Author Type: Sheet Finisher Type: Social Work Filed: 10/08/2018 11:31 AM Note Text: BEHAVIORAL HEALTH SOCIAL WORK DISCHARGE NOTE SERVICE DATE: 10/08/2018 SERVICE TIME: 1130 PATIENT'S DISCHARGE PLAN: Discharge Disposition Discharge Disposition: Home with Family/Friend Custodial Referral Information Residential Treatment Center Referral Information [facility]term [facility] Referral Information Crisis Stabilization Unit Acute Care Facility Referral Information Assisted Living Facility Referral Information Home Care Agency Referral Information Event Coordinator Marketing And Sales Guardian Psychiatry Follow-Up Appointment Psychiatrist Name: Alison Murillo NP Agency: [facility] Agency: ([facility]) Apppointment Date: 10/20/18 Appointment Time: 9:00am Medical Follow-Up Appointment Counselor Referral Information Case Management Referral Information Family Psychoeducational ([facility]) Follow-Up Appointment Coating Technician Chemical Dependency Care - Intensive Outpatient/Partial Hospital Program Behavioral Health Care - Intensive Outpatient/Partial Hospital Program ECT Treatment/Follow-Up Additional Discharge Information Patient/Demolition Expert Agreeable With Discharge Plan: Yes FREEDOM OF CHOICE EXPLAINED? na Patient/Demolition Expert Given/Explained Medicare Discharge Notice (IM letter): Not Applicable TRANSPORTATION ARRANGEMENTS: Car family to cloth picker PRESCRIPTIONS FILLED PRIOR TO DISCHARGE: Yes, at hospital pharmacy ADDITIONAL NOTES: pt to dc home today with parents; will f/u with [facility] as noted above; no additional needs identified; sw will provide outpatient provider with clinical for continuity of care SIGNATURE: ROBERTA DAI PATIENT NAME: Ramya Marquez DATE: October 08, 2018 TIME: 11:30 AM CNDS Observed: 10/08/2018 Status: COMPLETED Source: [place] 11:06 AM CLINIC OTHER CAMPUS REPOSITORY HNO ID: [id number] Author: Mercedes Fraser Service: Psychiatry Author Type: Physician Type: Discharge Summaries Filed: 10/08/2018 12:12 PM Note Text: DISCHARGE SUMMARY BEHAVIORAL HEALTH PATIENT NAME: Ramya Marquez ADMISSION DATE: 10/01/2018 DISCHARGE DATE: 10/08/2018 ATTENDING PHYSICIAN: Mercedes Fraser Code Status: Not on file Highest Readmission Risk Score: 11 The 30 day readmissions risk score is derived from an internally validated risk model which evaluates patient level characteristics, utilization history, medication orders and lab results up until the day of discharge. Patients with a score of 40 or above are considered highest risk for readmission. Specific patient level drivers will be listed at the bottom of the summary. REASON FOR HOSPITALIZATION: Risk of physical harm to self DISCHARGE DIAGNOSIS: 1. PRIMARY: Mood Disorder Bipolar I Disorder, Most Recent Episode Depressed Severe Without Psychotic Features OPERATIONS DURING HOSPITALIZATION: None PROCEDURES DURING HOSPITALIZATION: No procedures performed HOSPITAL COURSE: The patient was admitted to the psychiatric unit. Received regular safety checks at level 2. Daily vitals were taken. The patient received a regular diet. The patient was enrolled in the general program, including group therapy and psychoeducation. Social work was consulted for discharge planning; internal medicine was consulted for medical management. By the date of discharge, the patient was exhibiting clinical improvement and demonstrated the ability to convincingly contract for safety in the community. CONSULTING TEAMS DURING HOSPITALIZATION: None PATIENT CONDITION AT DISCHARGE: Stable DISCHARGE DISPOSITION: Home with Relative COMPLICATIONS: None At this time the patient has maximized her benefit from hospitalization.. The patient denies suicidal or homicidal ideation, intent or plan and is safe for discharge. The patient voices a readiness to transition back to her home setting and has agreed to our follow-up recommendations including medication compliance. SUBJECTIVE: Patient reports feeling well today, states her depression and thoughts of suicide have resolved. She is tolerating her medications. Sleeping well. No manic or psychotic symptoms. No homicidal ideations. He is agreeable to returning home with her family in following up with her outpatient psychiatrist and a intensive outpatient program. OBJECTIVE: Transitions of Care Critical Issues: SPECIALIST FOLLOW-UP: psychiatry LABS AND PROCEDURES PENDING AT DISCHARGE: SPECIALIST FOLLOW- UP: Psychiatry Any PRN's required for agitation or anxiety since last encounter: No New problems on the unit since the last encounter: No Any new medication reactions since the last encounter: No BP 110/75 Pulse 72 Temp (Src) 97.3 (Oral) Resp 18 Ht 5' 7 (1.70m) Wt 154 lb (69.9kg) SpO2 97% BMI 24.11 kg/(m2). MENTAL STATUS EXAM AT DISCHARGE: Appearance: Casually dressed and Appears stated age Behavior: Appropriate Orientation: Person, Place, Time and Situation Speech/Language: The patient demonstrates appropriate tone, prosody, lita, phonetics, and syntax Mood/Affect: Euthymic and flat with some mild flexibility Thought/Form: Coherent and Logical Thought Content: Coherent Logical Suicidal Ideations: No suicidal ideation, intent or plan. Homicidal Ideations: No homicidal ideation, intent or plan. Insight: Appropriate Judgment: Fair Memory/Cognition: Intact Psychomotor: Psychomotor activity was normal GENERAL: Alert, no distress, cooperative. NEUROLOGIC: No gross abnormal findings including cranial nerves 2-12. MUSCULOSKELETAL: Normal muscle strength, Normal muscle tone and No involuntary movements. GAIT: Normal. LABORATORY DATA: The laboratory/imaging results have been reviewed. Pertinent findings since the last assessment: No TREATMENT PLAN: 1. Biological Management: continue medications as per MRF 2. Psychological Management Recommendations: follow up with IOP 3. Social Intervention Recommendations: return home with family support INFORMED CONSENT: Yes, completed with the Patient. Discussed the risks, benefits and alternatives to the medication(s) recommended. Consent was given. ALLERGIES Allergen Reactions - Animal Dander - Dust - Feathers - Mold - Phenothiazines phenegan-feeling nausea - Tricyclic Compounds pamelor-dizziness DISCHARGE MEDICATION: Current Discharge Medication List START taking these medications lamoTRIgine (LaMICtal) 50 mg Take 50 mg by mouth twice daily. Qty: 120 tablet Refills: 0 lithium carbonate ER 300 mg Take 300 mg by mouth once daily. Qty: 30 tablet Refills: 0 CONTINUE these medications which have CHANGED risperiDONE (RisperDAL) 1 mg Take 1 mg by mouth daily at bedtime. Qty: 30 tablet Refills: 0 CONTINUE these medications which have NOT CHANGED esomeprazole (NexIUM) 40 mg Take 40 mg by mouth once daily. lithium carbonate 600 mg Take 600 mg by mouth daily at bedtime. MELATONIN 3MG TABLET PO Take 6 mg po qhs for two weeks and increase to 9 mg po qhs if needed Refills: 0 Associated Diagnoses:Tension headache STOP taking these medications paliperidone palmitate (INVEGA) 156 mg Comments: Reason for Stopping: traZODone (DESYREL) 50 mg Comments: Reason for Stopping: ZYRTEC 10MG TABLET Comments: Reason for Stopping: ZOMIG 2.5MG TABLET Comments: Reason for Stopping: ELAVIL 10MG TABLET Comments: Reason for Stopping: Is Patient Discharged on Two Active Antipsychotics? No INFORMATION PROVIDED TO PATIENT: Substance Abuse Information Given Smoking Cessation Material Given FUTURE APPOINTMENTS: Follow Up with PCP: Susie Jurado (Inactive) Follow Up with [facility] Information Row Name Admission (Current) from 10/01/[address] STRESS MANAGEMENT Psychiatry Follow-Up Appointment Psychiatrist Name Alison Murillo NP Agency [facility] Agency ? [facility] Apppointment Date 10/20/18 Appointment Time 9:00am Discharge Disposition Discharge Disposition Home with Family/Friend The patient's risk for 30-day readmission is determined using the following contributing factors: Pt variables contributing to increased readmission risk: 14 Active Medication Orders 1 Insurance - Medicaid 1 Discharge Disposition - Home TIME OF CARE: Discharge Management: I personally spent greater than 30 minutes involved in the discharge management of this patient. SIGNATURE: Mercedes Fraser MD PATIENT NAME: Ramya Marquez DATE: October 08, 2018 TIME: 11:06 AM PAGER/CONTACT #: [phone] NURSING PROG Observed: 10/07/2018 Status: COMPLETED Source: [place] 10:59 PM CLINIC OTHER CAMPUS REPOSITORY HNO ID: [id number] Author: Yung (Rn) JACY Vergara Service: Behavioral Health Author Type: Registered Nurse Type: Nursing Progress Note Filed: 10/07/2018 11:03 PM Note Text: Nursing Progress Note Patient Name: Ramya Marquez Patient Location: [id number]/[facility]* Pt in bed resting. Pt agrees to safety while on the unit. Pt states her anxiety and depression are better and they both are low. Pt denies SI/HI/AH/VH. Pt answered questions quickly and tried to be done with the interaction. Pt is med compliant. Pt states she is feel a lot better and ready to go home. Pt was encouraged to seek staff if she has concerns. Will continue to monitor for safety. This note was completed by: Yung Vergara RN ALLIED HEALTH Observed: 10/07/2018 Status: COMPLETED Source: [place] 4:11 PM [facility] REPOSITORY HNO ID: [id number] Author: Rossana Ortiz (Therapist) Jhonathan Service: (none) Author Type: Therapist Type: Allied Health Filed: 10/07/2018 4:13 PM Note Text: PROGRESS NOTE BEHAVIORAL HEALTH Topic of Note: Group Participation SERVICE DATE: 10/07/2018 SERVICE TIME: 15:34-16:02 A-Pt stated that they are feeling hopeful. Pt presented with moderate level of energy and flat affect. Pt actively participated in activity and discussion. -I- Facilitated group re: positive self. Therapist provided opportunity to express thoughts and feelings. -E- Pt. could benefit from continued support, talking about thoughts and feelings in group and a opportunity to learn positive coping skills. SIGNATURE: Rossana Ring, Adjunctive Therapist PATIENT NAME: Ramya Marquez DATE: October 07, 2018 TIME: 4:12 PM PAGER/CONTACT #: ALLIED HEALTH Observed: 10/07/2018 Status: COMPLETED Source: [place] 4:08 PM [facility] REPOSITORY HNO ID: [id number] Author: Cristel (Therapist) Yodit Service: (none) Author Type: Therapist Type: Allied Health Filed: 10/07/2018 4:09 PM Note Text: PROGRESS NOTE BEHAVIORAL HEALTH Topic of Note: Group Participation SERVICE DATE: 10/07/2018 SERVICE TIME: [id number] A- Pt reported feeling pretty good. She?presented with moderate level of energy and flat?affect. Pt actively participated in activity and minimally in discussion. -I- Facilitated group re: Mindfulness/ Open Processing. Therapist provided opportunity to express thoughts and feelings. ??-E- Pt. could benefit from continued support, talking about thoughts and feelings in group and an opportunity to learn positive coping skills. SIGNATURE: Cristel Monsivais Therapist PATIENT NAME: Ramya Marquez DATE: October 07, 2018 TIME: 4:08 PM PAGER/CONTACT #: PROGRESS Observed: 10/07/2018 Status: COMPLETED Source: [place] 2:11 PM CLINIC OTHER CAMPUS REPOSITORY O ID: [id number] Author: Mercedes Fraser Service: Psychiatry Author Type: Physician Type: Progress Notes Filed: 10/07/2018 2:33 PM Note Text: PROGRESS NOTE BEHAVIORAL HEALTH SERVICE DATE: 10/07/2018 SERVICE TIME: 2:12 PM The Interdisciplinary team met and reviewed treatment goals and discharge planning. Subjective Patient seen in follow up for bipolar depression. Chart reviewed. Discussed with staff. Compliant with care. Taking scheduled medications. Slept 7 hours. Attending groups. No behavioral issues. On evaluation today, she reports feeling well. She is tolerating her medications without side effect. She denies SI, HI, and symptoms of marcelo. She feels well rested. Still somewhat restless at times but improved since admission. Agreeable to current plan. Considering IOP upon returning home. Objective PHYSICAL EXAM: BP 130/80 Pulse 75 Temp 36.7 ?C (98.1 ?F) Resp 18 Ht 170.2 cm (5' 7) Wt 69.9 kg (154 lb) SpO2 98% BMI 24.12 kg/m? MENTAL STATUS EXAMINATION: Appearance: Casually dressed, Appears stated age and fair hygiene Behavior: Appropriate Orientation: Person, Place, Time and Situation Speech/Language: The patient demonstrates appropriate tone, prosody, lita, phonetics, and syntax Mood/Affect: Euthymic and flat Thought Form: Coherent and Logical Thought Content: Coherent Logical Suicidal Ideations: No suicidal ideation, intent or plan. Homicidal Ideations: No homicidal ideation, intent or plan. Insight: Fair Judgment: Limited and Fair Memory/Cognition: Intact Psychomotor: Psychomotor activity was normal NEW PROBLEMS ON UNIT SINCE LAST ENCOUNTER: None Current hospital medications: lamoTRIgine 50 mg tab(s) (LaMICtal) 50 mg ORAL BID therapeutic multivitamin with iron (THERAGRAN-M) 1 tablet ORAL DAILY sodium chloride 0.65 % 2 Bryant (AYR, OCEAN) 2 Bryant EACH NOSTRIL PRN risperiDONE 1 mg tab(s) (RisperDAL) 1 mg ORAL AT BEDTIME Lip Protectant with Sunscreen SPF 15 1 application Stick (Blistex) 1 application TOPICAL PRN benzocaine-menthol 1 Lozenge (CEPACOL) 1 Lozenge MUCOUS MEMBRANE (TOPICAL MOUTH AND THROAT) q 2 H PRN acetaminophen 650 mg tab(s) (TYLENOL) 650 mg ORAL q 6 H PRN aluminum-magnesium hydroxide-simethicone 200-200-20 mg/5 mL 30 mL (MAALOX,MYLANTA,MAG-AL PLUS) 30 mL ORAL q 4 H PRN magnesium hydroxide 400 mg/5 mL 30 mL (MOM) 30 mL ORAL DAILY PRN pantoprazole DR 40 mg tab(s) (PROTONIX) 40 mg ORAL DAILY (6 AM) lithium carbonate ER 300 mg tab(s) 300 mg ORAL DAILY lithium carbonate ER 600 mg tab(s) 600 mg ORAL AT BEDTIME melatonin 6 mg tab(s) 6 mg ORAL AT BEDTIME hydrOXYzine HCl 50 mg tab(s) (ATARAX) 50 mg ORAL QID PRN DATA: Diagnostic tests reviewed for today's visit: No new labs Assessment/Plan DIAGNOSIS: 1. PRIMARY: Mood Disorder Bipolar I Disorder, Most Recent Episode Depressed Severe Without Psychotic Features RISK ASSESSMENT: Suicide: low Homicide: low Deliberate Self-Harm: low Aggression: low Imminent Physical Self Impairment: low INFORMED CONSENT: Yes, completed with the Patient. Discussed the risks, benefits and alternatives to the medication(s) recommended. Consent was given. INTERVENTION: Biological: continue current treatment Psychological: encouraged compliance, continue groups Social: discharge planning DISCHARGE PLANNING: Discharge by perhaps Saturday. SIGNATURE: Mercedes Fraser MD PATIENT NAME: Ramya Marquez DATE: October 07, 2018 TIME: 2:12 PM PAGER/CONTACT#: [phone] ALLIED HEALTH Observed: 10/07/2018 Status: COMPLETED Source: [place] 12:32 PM [facility] OTHER [place] REPOSITORY HNO ID: [id number] Author: Rossana Ortiz (Therapist) Jhonathan Service: (none) Author Type: Therapist Type: Allied Health Filed: 10/07/2018 12:33 PM Note Text: PROGRESS NOTE BEHAVIORAL HEALTH Topic of Note: Group Participation SERVICE DATE: 10/07/2018 SERVICE TIME: 10:54-11:26 A-Pt stated that they are feeling happy and hopeful. Pt presented with moderate level of energy and flat affect. Pt actively participated in activity and discussion. -I- Facilitated group re: grief. Therapist provided opportunity to express thoughts and feelings. -E- Pt. could benefit from continued support, talking about thoughts and feelings in group and a opportunity to learn positive coping skills. SIGNATURE: Rossana Ring, Adjunctive Therapist PATIENT NAME: Ramya Marquez DATE: October 07, 2018 TIME: 12:32 PM PAGER/CONTACT #: ALLIED HEALTH Observed: 10/07/2018 Status: COMPLETED Source: [place] 11:56 AM [facility] REPOSITORY HNO ID: [id number] Author: Cristel (Therapist) Yodit Service: (none) Author Type: Therapist Type: Allied Health Filed: 10/07/2018 11:58 AM Note Text: PROGRESS NOTE BEHAVIORAL HEALTH Topic of Note: Group Participation SERVICE DATE: 10/07/2018 SERVICE TIME: [id number] A- Pt reported feeling loved, happy, excited, anxious. She?presented with moderate level of energy and flat?affect. Pt actively participated in activity and discussion. -I- Facilitated group re: Mental Health Relapse Prevention Planning. Therapist provided opportunity to express thoughts and feelings. ??-E- Pt. could benefit from continued support, talking about thoughts and feelings in group and an opportunity to learn positive coping skills. SIGNATURE: Cristel Monsivais, Therapist PATIENT NAME: Ramya Marquez DATE: October 07, 2018 TIME: 11:56 AM PAGER/CONTACT #: NURSING PROG Observed: 10/07/2018 Status: COMPLETED Source: [place] 8:14 AM [facility] REPOSITORY HNO ID: [id number] Author: Jo BuiRn) JACY Montalvo Service: Behavioral Health Author Type: Registered Nurse Type: Nursing Progress Note Filed: 10/07/2018 11:20 AM Note Text: Nursing Progress Note Patient Name: Ramya Marquez Patient Location: [place] [address]/[place] [address]* Daily Note: Pt at nsg station for AM meds. Pt reports sleeping well and denies issues with appetite. Pt pleasant and cooperative throughout assessment. Affect appears restricted. Pt states she is doing much better than upon admission. Pt says her depression has improved vastly, but is still present. Pt initially denies any anxiety, then says she is a little anxious to get back to [place] and be normal. Pt describes her mood as stable. She says she has some anxiety regarding how things will be on d/c. RN offered emotional support. Pt denies any SI/HI/AVH. Pt adherent with AM meds. Pt is encouraged to attend groups and to shower today. Pt to be closely monitored on unit. Pt to report concerns to staff. This note was completed by: Jo Montalvo RN NURSING PROG Observed: 10/06/2018 Status: COMPLETED Source: [place] 8:37 PM CLINIC OTHER CAMPUS REPOSITORY O ID: [id number] Author: Hyun BuiRn) JACY Mustafa Service: Nursing Author Type: Registered Nurse Type: Nursing Progress Note Filed: 10/06/2018 8:53 PM Note Text: Nursing Progress Note Patient Name: Ramya Marquez Patient Location: [id number]/[facility]6400-64* Daily Note: Pt up to nurses station for HS medications, dressed in own clothing. Pt calm and cooperative with assessment. Pt states anxiety and depression are low at a 3/10. Pt denies SI/HI, A/VH. Pt movements and speech are slowed but appear to be improving. Pt is pleasant and polite with assessment consultant. Pt up on unit but seems to keep to herself. Pt agrees to be safe on the unit and to seek staff with any needs. Will continue to monitor. This note was completed by: Hyun Mustafa RN ALLIED HEALTH Observed: 10/06/2018 Status: COMPLETED Source: [place] 4:40 PM [facility] REPOSITORY HNO ID: [id number] Author: Rossana Ortiz (Therapist) Jhonathan Service: (none) Author Type: Therapist Type: Allied Health Filed: 10/06/2018 4:41 PM Note Text: PROGRESS NOTE BEHAVIORAL HEALTH Topic of Note: Group Participation SERVICE DATE: 10/06/2018 SERVICE TIME: 14:30-15:25 A-Pt stated that they are feeling tired but good. Pt presented with moderate level of energy and flat affect. Pt actively participated in activity and discussion. -I- Facilitated group re: coping skills. Therapist provided opportunity to express thoughts and feelings. -E- Pt. could benefit from continued support, talking about thoughts and feelings in group and a opportunity to learn positive coping skills. SIGNATURE: Rossana Ring, Adjunctive Therapist PATIENT NAME: Ramya Marquez DATE: October 06, 2018 TIME: 4:41 PM PAGER/CONTACT #: ALLIED HEALTH Observed: 10/06/2018 Status: COMPLETED Source: [place] 1:09 PM [facility] [place] REPOSITORY HNO ID: [id number] Author: Rossana Ortiz (Therapist) Jhonathan Service: (none) Author Type: Therapist Type: Allied Health Filed: 10/06/2018 1:10 PM Note Text: PROGRESS NOTE BEHAVIORAL HEALTH Topic of Note: Group Participation SERVICE DATE: 10/06/2018 SERVICE TIME: 10:26-10:53 A-Pt stated that they are feeling pretty good. Pt presented with moderate level of energy and flat affect. Pt actively participated in activity and discussion. -I- Facilitated group re: crisis plan. Therapist provided opportunity to express thoughts and feelings. -E- Pt. could benefit from continued support, talking about thoughts and feelings in group and a opportunity to learn positive coping skills. SIGNATURE: Rossana Ring, Adjunctive Therapist PATIENT NAME: Ramya Marquez DATE: October 06, 2018 TIME: 1:09 PM PAGER/CONTACT #: PROGRESS Observed: 10/06/2018 Status: COMPLETED Source: [place] 11:51 AM CLINIC OTHER CAMPUS REPOSITORY O ID: [id number] Author: Mercedes Fraser Service: Psychiatry Author Type: Physician Type: Progress Notes Filed: 10/06/2018 11:58 AM Note Text: PROGRESS NOTE BEHAVIORAL HEALTH SERVICE DATE: 10/06/2018 SERVICE TIME: 11:51 AM The Interdisciplinary team met and reviewed treatment goals and discharge planning. Subjective Patient seen in follow up for bipolar depression. Chart reviewed. Discussed with staff. Compliant with medications. Slept 7 hours overnight. Behaviorally appropriate. On exam, she reports improved mood. Finding lamictal helpful, no side effects voiced. Attending groups. In regular contact with boyfriend/family, who remain supportive. Denies manic symptoms, SI, and HI. Still reporting some feelings of restlessness but denying anxiety. Agreeable to continue care for lamictal titration. Objective PHYSICAL EXAM: BP 128/76 Pulse 73 Temp 36.5 ?C (97.7 ?F) Resp 19 Ht 170.2 cm (5' 7) Wt 69.9 kg (154 lb) SpO2 96% BMI 24.12 kg/m? MENTAL STATUS EXAMINATION: Appearance: Casually dressed and Appears stated age Behavior: Appropriate Orientation: Person, Place, Time and Situation Speech/Language: The patient demonstrates appropriate tone, prosody, lita, phonetics, and syntax Mood/Affect: Depressed and Flat Thought Form: Coherent and Logical Thought Content: Coherent Logical Suicidal Ideations: No suicidal ideation, intent or plan. Homicidal Ideations: No homicidal ideation, intent or plan. Insight: Fair Judgment: Limited Memory/Cognition: Intact Psychomotor: Retarded NEW PROBLEMS ON UNIT SINCE LAST ENCOUNTER: None Current hospital medications: lamoTRIgine 50 mg tab(s) (LaMICtal) 50 mg ORAL BID sodium chloride 0.65 % 2 Bryant (AYR, OCEAN) 2 Bryant EACH NOSTRIL PRN risperiDONE 1 mg tab(s) (RisperDAL) 1 mg ORAL AT BEDTIME Lip Protectant with Sunscreen SPF 15 1 application Stick (Blistex) 1 application TOPICAL PRN benzocaine-menthol 1 Lozenge (CEPACOL) 1 Lozenge MUCOUS MEMBRANE (TOPICAL MOUTH AND THROAT) q 2 H PRN acetaminophen 650 mg tab(s) (TYLENOL) 650 mg ORAL q 6 H PRN aluminum-magnesium hydroxide-simethicone 200-200-20 mg/5 mL 30 mL (MAALOX,MYLANTA,MAG-AL PLUS) 30 mL ORAL q 4 H PRN magnesium hydroxide 400 mg/5 mL 30 mL (MOM) 30 mL ORAL DAILY PRN pantoprazole DR 40 mg tab(s) (PROTONIX) 40 mg ORAL DAILY (6 AM) lithium carbonate ER 300 mg tab(s) 300 mg ORAL DAILY lithium carbonate ER 600 mg tab(s) 600 mg ORAL AT BEDTIME melatonin 6 mg tab(s) 6 mg ORAL AT BEDTIME hydrOXYzine HCl 50 mg tab(s) (ATARAX) 50 mg ORAL QID PRN DATA: Diagnostic tests reviewed for today's visit: No new labs Assessment/Plan DIAGNOSIS: 1. PRIMARY: Mood Disorder Bipolar I Disorder, Most Recent Episode Depressed Severe Without Psychotic Features RISK ASSESSMENT: Suicide: low Homicide: low Deliberate Self-Harm: low Aggression: low Imminent Physical Self Impairment: low INFORMED CONSENT: Yes, completed with the Patient. Discussed the risks, benefits and alternatives to the medication(s) recommended. Consent was given. INTERVENTION: Biological: increase lamictal to 50mg BID, add daily multivitamin Psychological: continue groups Social: discharge planning DISCHARGE PLANNING: Discharge by perhaps Saturday, Saturday or . SIGNATURE: Mercedes Fraser MD PATIENT NAME: Ramya Marquez DATE: October 06, 2018 TIME: 11:51 AM PAGER/CONTACT#: [phone] NURSING PROG Observed: 10/06/2018 Status: COMPLETED Source: [place] 8:02 AM [facility] OTHER CAMPUS REPOSITORY HNO ID: [id number] Author: Stacey (Rn) JACY Perdue Service: Nursing Author Type: Registered Nurse Type: Nursing Progress Note Filed: 10/06/2018 11:14 AM Note Text: Nursing Progress Note Patient Name: Ramya Marquez Patient Location: [id number]/[id number]* Daily Note: Patient is polite, calm and compliant with medication. Patient showered this morning and is dressed appropriately. Patient speech and movements are slow. Patient denies concerns regarding mediction and states I feel a lot less slow than I did. Patient states that she feels she is sleeping better at night. Patient denies issues with appetite; patient ate 10% of breakfast this morning. Patient denies suicidal and homicidal ideation and agrees to be safe on unit. Patient denies hallucinations. Patient states anxiety is 3 or 4/10 with no specific cause and depression is 3 or 4/10. Patient states she feels she can safe at home and that she misses her family. Patient states that she sees Kailey Murillo at a counseling center in [facility] and plans to continue to do so after discharge. Patient denies needs and agrees to notify staff with any. Will continue to monitor. This note was completed by: Stacey Perdue RN NURSING PROG Observed: 10/06/2018 Status: COMPLETED Source: [place] 12:19 AM CLINIC OTHER CAMPUS REPOSITORY O ID: [id number] Author: Debbie (Jacy) JACY Luo Service: Nursing Author Type: Registered Nurse Type: Nursing Progress Note Filed: 10/06/2018 12:22 AM Note Text: Nursing Progress Note Patient Name: Ramya Marquez Patient Location: [place] [address]/[place] [address]* Daily Note: Up and about, isolative to self throughout evening. Offers no complaints/requests, med compliant. Denies si and states that mood is improving. Affect more flexible than yesterday, psychomotor slowing less than yesterday, speech rate more normal today. Pt uncertain about dc plan at this time but states that she doesn't feel quite ready to go home. Emotional support offered. This note was completed by: Debbie Luo RN PROGRESS Observed: 10/05/2018 Status: COMPLETED Source: [place] 11:31 AM CLINIC OTHER CAMPUS REPOSITORY O ID: [id number] Author: Rafi Lizama Service: (none) Author Type: Nurse Practitioner Type: Progress Notes Filed: 10/05/2018 11:43 AM Note Text: PROGRESS NOTE BEHAVIORAL HEALTH SERVICE DATE: 10/05/2018 SERVICE TIME: 11:32 AM [employer] covering for Dr. Fraser. Chart and nursing data base reviewed. Spoke with nursing who report client is reporting improvement in depression. Behaviorally apporpriate on unit ? Patient reports feeling less depressed. Denies anxiety. States she is concerned about removal of risperidone as this may not be enough to prevent manic episodes in the future. Discussed med management and med management strategies. Discussed known triggers for bipolar marcelo. Reports feeling less fatigued and blunted with reduction in risperidone. Says reading has been easier. Denies SI/HI/SIB. denies any experiences consistent with psychosis. Slept 7 hours . Appetite wnl. Adherent with medication regimen. No PRN medications in the last 24 hours. Denies medication side effects from lamictal. ? Objective Laying in bed reading. Insight is good for treatment issues. PHYSICAL EXAM: BP 128/82 Pulse 88 Temp 36.3 ?C (97.3 ?F) (Oral) Resp 18 Ht 170.2 cm (5' 7) Wt 69.9 kg (154 lb) SpO2 97% BMI 24.12 kg/m? MENTAL STATUS EXAMINATION: Appearance: Casually dressed Behavior: friendly, cooperative Orientation: Person, Place, Time and Situation Speech/Language: Soft, normal rate, rhythm Mood/Affect: Depressed, Fatigued, Flat and Being Sad Thought Form: Coherent and Logical Thought Content: Coherent Logical Suicidal Ideations: No suicidal ideation, intent or plan. Homicidal Ideations: No homicidal ideation, intent or plan. Insight: Recognizes presence of illness Judgment: Appropriate Memory/Cognition: Intact Psychomotor: Psychomotor activity was normal ? NEW PROBLEMS ON UNIT SINCE LAST ENCOUNTER: None Current hospital medications: sodium chloride 0.65 % 2 Bryant (AYR, OCEAN) 2 Bryant EACH NOSTRIL PRN lamoTRIgine 25 mg tab(s) (LaMICtal) 25 mg ORAL BID risperiDONE 1 mg tab(s) (RisperDAL) 1 mg ORAL AT BEDTIME Lip Protectant with Sunscreen SPF 15 1 application Stick (Blistex) 1 application TOPICAL PRN benzocaine-menthol 1 Lozenge (CEPACOL) 1 Lozenge MUCOUS MEMBRANE (TOPICAL MOUTH AND THROAT) q 2 H PRN acetaminophen 650 mg tab(s) (TYLENOL) 650 mg ORAL q 6 H PRN aluminum-magnesium hydroxide-simethicone 200-200-20 mg/5 mL 30 mL (MAALOX,MYLANTA,MAG-AL PLUS) 30 mL ORAL q 4 H PRN magnesium hydroxide 400 mg/5 mL 30 mL (MOM) 30 mL ORAL DAILY PRN pantoprazole DR 40 mg tab(s) (PROTONIX) 40 mg ORAL DAILY (6 AM) lithium carbonate ER 300 mg tab(s) 300 mg ORAL DAILY lithium carbonate ER 600 mg tab(s) 600 mg ORAL AT BEDTIME melatonin 6 mg tab(s) 6 mg ORAL AT BEDTIME hydrOXYzine HCl 50 mg tab(s) (ATARAX) 50 mg ORAL QID PRN DATA: Diagnostic tests reviewed for today's visit: No new labs Assessment/Plan DIAGNOSIS: ? 1. PRIMARY: Mood Disorder Bipolar I Disorder, ?Most Recent Episode Depressed ?Severe Without Psychotic Features ? ? RISK ASSESSMENT: Suicide: low Homicide: low Deliberate Self-Harm: low Aggression: low Imminent Physical Self Impairment: low Plan: Continue psychiatric admission on 6400 with routine precautions. Patient requires more time to adjust to medication. Dr. Mcclure will continue medical management. Social work assisting with the discharge plan. Patient is encouraged to participate in groups and activities in the [facility]. There has been no use of restraint or seclusion in the past [address] Fraser will follow tomorrow. ? SIGNATURE: Rafi Lizama APRN.AMILCAR PATIENT NAME: Ramya Marquez DATE: October 05, 2018 TIME: 11:31 AM PAGER/CONTACT#: NURSING PROG Observed: 10/05/2018 Status: COMPLETED Source: [place] 7:59 AM CLINIC OTHER CAMPUS REPOSITORY HNO ID: [id number] Author: Adam BuiRn) JACY Sebastian Service: Behavioral Health Author Type: Registered Nurse Type: Nursing Progress Note Filed: 10/05/2018 10:18 AM Note Text: Nursing Progress Note Patient Name: Ramya Marquez Patient Location: [id number]* Daily Note: Pt casually dressed, out for meals, bx in control. Pt reports depression with no specific cause I'm just feeling it. Pt with mild thought blocking and psychomotor slowing. Pt denies anxiety, SI/HI and AH/VH at this time. Emotional support provided, pt reminded to seek staff PRN. This note was completed by: Adam Sebastian RN NURSING PROG Observed: 10/05/2018 Status: COMPLETED Source: [place] 1:03 AM [facility] [place] REPOSITORY HNO ID: [id number] Author: Debbie Luo RN Service: Nursing Author Type: Registered Nurse Type: Nursing Progress Note Filed: 10/05/2018 1:06 AM Note Text: Nursing Progress Note Patient Name: Ramya Marquez Patient Location: [id number]* Daily Note: Up and about early part of evening, stays to self. Significant psychomotor slowing and some thought blocking observed. Offers no complaints/requests, med compliant. Denies si and states that both anxiety and depression are improving. Emotional support offered. This note was completed by: Debbie Luo RN ALLIED HEALTH Observed: 10/04/2018 Status: COMPLETED Source: [place] 2:15 PM [facility] [place] REPOSITORY HNO ID: [id number] Author: Chinyere Jimenez (Ctrs) Service: Behavioral Health Author Type: Recreational Therapist Type: Allied Health Filed: 10/04/2018 4:50 PM Note Text: PROGRESS NOTE BEHAVIORAL HEALTH Topic of Note: Group Participation SERVICE DATE: 10/04/2018 SERVICE TIME: 8501-6530 Assessment: Pt. participated upon invite, her affect was pleasant, she displayed moderate energy/effort, she engaged in the group discussion and completed the group exercises. Intervention: Discussion/Activity on effective communication skills. Evaluation: Encouraged use of effective communication skills to improve interpersonal effectiveness. Pt. would benefit from continued support and therapeutic services as well as the ability to continue developing positive coping skills. SIGNATURE: DOROTHEA Jimenez PATIENT NAME: Ramya Marquez DATE: October 04, 2018 TIME: 4:50 PM PAGER/CONTACT #: PROGRESS Observed: 10/04/2018 Status: COMPLETED Source: [place] 2:13 PM CLINIC OTHER CAMPUS REPOSITORY O ID: [id number] Author: Rafi Thompson) Dl Service: (none) Author Type: Nurse Practitioner Type: Progress Notes Filed: 10/04/2018 2:19 PM Note Text: PROGRESS NOTE BEHAVIORAL HEALTH SERVICE DATE: 10/04/2018 SERVICE TIME: 2:13 PM [employer] covering for Dr. Fraser. Chart and nursing data base reviewed. Spoke with nursing who report client is reporting less depression and anxiety. Patient reports feeling less depressed and anxious. Feeling less fatigued and blunted with reduction in risperidone. Doesn't know if this is attributable to risperidone or lamictal titration. Denies SI/HI/SIB. denies any experiences consistent with psychosis. Slept 7 hours . Appetite wnl. Adherent with medication regimen. No PRN medications in the last 24 hours. Denies medication side effects from lamictal. Objective Tolerating med adjustment. Future-oriented. PHYSICAL EXAM: BP 126/79 Pulse 84 Temp 37 ?C (98.6 ?F) (Oral) Resp 16 Ht 170.2 cm (5' 7) Wt 69.9 kg (154 lb) SpO2 100% BMI 24.12 kg/m? MENTAL STATUS EXAMINATION: Appearance: Casually dressed Behavior: friendly, cooperative Orientation: Person, Place, Time and Situation Speech/Language: Soft and Slow Mood/Affect: Depressed, Fatigued, Flat and Being Sad Thought Form: Coherent and Logical Thought Content: Coherent Logical Suicidal Ideations: No suicidal ideation, intent or plan. Homicidal Ideations: No homicidal ideation, intent or plan. Insight: Recognizes presence of illness Judgment: Appropriate Memory/Cognition: Intact Psychomotor: Psychomotor activity was normal NEW PROBLEMS ON UNIT SINCE LAST ENCOUNTER: None Current hospital medications: lamoTRIgine 25 mg tab(s) (LaMICtal) 25 mg ORAL BID risperiDONE 1 mg tab(s) (RisperDAL) 1 mg ORAL AT BEDTIME Lip Protectant with Sunscreen SPF 15 1 application Stick (Blistex) 1 application TOPICAL PRN benzocaine-menthol 1 Lozenge (CEPACOL) 1 Lozenge MUCOUS MEMBRANE (TOPICAL MOUTH AND THROAT) q 2 H PRN acetaminophen 650 mg tab(s) (TYLENOL) 650 mg ORAL q 6 H PRN aluminum-magnesium hydroxide-simethicone 200-200-20 mg/5 mL 30 mL (MAALOX,MYLANTA,MAG-AL PLUS) 30 mL ORAL q 4 H PRN magnesium hydroxide 400 mg/5 mL 30 mL (MOM) 30 mL ORAL DAILY PRN pantoprazole DR 40 mg tab(s) (PROTONIX) 40 mg ORAL DAILY (6 AM) lithium carbonate ER 300 mg tab(s) 300 mg ORAL DAILY lithium carbonate ER 600 mg tab(s) 600 mg ORAL AT BEDTIME melatonin 6 mg tab(s) 6 mg ORAL AT BEDTIME hydrOXYzine HCl 50 mg tab(s) (ATARAX) 50 mg ORAL QID PRN DATA: Diagnostic tests reviewed for today's visit: Most recent labs and imaging results. Assessment/Plan DIAGNOSIS: 1. PRIMARY: Mood Disorder Bipolar I Disorder, Most Recent Episode Depressed Severe Without Psychotic Features RISK ASSESSMENT: Suicide: low Homicide: low Deliberate Self-Harm: moderate Aggression: low Imminent Physical Self Impairment: low Plan: Continue psychiatric admission on 6400 with routine precautions. Patient requires more time to adjust to medication. Dr. Mcclure will continue medical management. Social work assisting with the discharge plan. Patient is encouraged to participate in groups and activities in the [place]. There has been no use of restraint or seclusion in the past 24 hours. JETT will follow tomorrow. SIGNATURE: Rafi Lizama APRN.AMILCAR PATIENT NAME: Ramya Marquez DATE: October 04, 2018 TIME: 2:13 PM PAGER/CONTACT#: ALLIED HEALTH Observed: 10/04/2018 Status: COMPLETED Source: [place] 9:35 AM CLINIC OTHER CAMPUS REPOSITORY HNO ID: [id number] Author: Tahira BuiPulmonologist Intensivist) Chinyere Barbosa Service: Behavioral Health Author Type: Recreational Therapist Type: Allied Health Filed: 10/04/2018 12:42 PM Note Text: PROGRESS NOTE BEHAVIORAL HEALTH Topic of Note: Group Participation SERVICE DATE: 10/04/2018 SERVICE TIME: 4435-2318 Assessment: Pt. participated upon invite, her affect was pleasant, she displayed moderate energy/effort, she engaged in the group discussion and completed the group exercises. She reports that she enjoys meditation. Intervention: Discussion/Activity on coping utilizing leisure skills (exercise/ROM, deep breathing techniques and craft activity.) Evaluation: Pt. was able to identify positive leisure pursuits to use as coping skills. Encouraged use of positive coping and leisure life skills. Pt would benefit from continued support and therapeutic services as well as the ability to continue developing positive coping skills. SIGNATURE: KATHLEEN JimenezS PATIENT NAME: Ramya Marquez DATE: October 04, 2018 TIME: 12:42 PM PAGER/CONTACT #: NURSING PROG Observed: 10/04/2018 Status: COMPLETED Source: [place] 9:00 AM CLINIC OTHER CAMPUS REPOSITORY O ID: [id number] Author: Mahsa Jimenez (Rn) JACY Mays Service: Nursing Author Type: Registered Nurse Type: Nursing Progress Note Filed: 10/04/2018 6:12 PM Note Text: Nursing Progress Note Patient Name: Ramya Marquez Patient Location: [place] [address]/[place] [address]* Daily Note: Patient up to nursing station, compliant with morning medications. Patient states she slept well, reports eating well. Patient denies SI, HI, AH, VH. Patient states anxiety and depression are 3/10, reports that they have decreased steadily since admission. Patient reports being able to focus slightly better today than previous days. Patient agrees to seek out RN or staff with questions/needs/concerns. Will continue to monitor. This note was completed by: Mahsa Mays RN NURSING PROG Observed: 10/03/2018 Status: COMPLETED Source: [place] 8:23 PM [facility] [place] REPOSITORY HNO ID: [id number] Author: Hyun BuiRn) JACY Mustafa Service: Nursing Author Type: Registered Nurse Type: Nursing Progress Note Filed: 10/03/2018 8:49 PM Note Text: Nursing Progress Note Patient Name: Ramya Marquez Patient Location: [place] [address]/[place] [address]* Daily Note: Pt up to nurses station for HS medications, dressed in own clothing. Pt calm and cooperative with assessment. Pt states anxiety 4/10 and depression 5/10. Pt denies SI/HI, A/VH. Pt is slow to respond to questions, flat in affect. Pt requesting nasal spray for congestion during the middle of the night. Pt up on unit and selectively social with other patients. Pt agrees to be safe on the unit and to seek staff with any needs. Will continue to monitor. This note was completed by: Hyun Mustafa RN ALLIED HEALTH Observed: 10/03/2018 Status: COMPLETED Source: [place] 4:30 PM [facility] [place] REPOSITORY HNO ID: [id number] Author: Rossana Ortiz (Therapist) Jhonathan Service: (none) Author Type: Therapist Type: Allied Health Filed: 10/03/2018 4:31 PM Note Text: PROGRESS NOTE BEHAVIORAL HEALTH Topic of Note: Group Participation SERVICE DATE: 10/03/2018 SERVICE TIME: 15:43-16:15 A-Pt stated that they are feeling good. Pt presented with moderate level of energy and flat affect. Pt actively participated in activity. -I- Facilitated group re: gratitude. Therapist provided opportunity to express thoughts and feelings. -E- Pt. could benefit from continued support, talking about thoughts and feelings in group and a opportunity to learn positive coping skills. SIGNATURE: Rossana Ring, Adjunctive Therapist PATIENT NAME: Ramya Marquez DATE: October 03, 2018 TIME: 4:30 PM PAGER/CONTACT #: ALLIED HEALTH Observed: 10/03/2018 Status: COMPLETED Source: [place] 3:41 PM [facility] [place] REPOSITORY HNO ID: [id number] Author: Cristel (Therapist) Yodit Service: (none) Author Type: Therapist Type: Allied Health Filed: 10/03/2018 3:43 PM Note Text: PROGRESS NOTE BEHAVIORAL HEALTH Topic of Note: Group Participation SERVICE DATE: 10/03/2018 SERVICE TIME: 0209-1878 ? A- Pt stated she is feeling less slow than I was yesterday. She presented with moderate level of energy and flat?affect. Pt was pleasant, cooperative and actively participated in activity and?discussion. -I- Facilitated group re: Open processing. Therapist provided opportunity to process thoughts and feelings. -E- Pt. could benefit from continued support, talking about thoughts and feelings in group and an opportunity to learn positive coping skills ? SIGNATURE: Cristel Monsivais, Therapist PATIENT NAME: Ramya Marquez DATE: October 03, 2018 TIME: 3:41 PM PAGER/CONTACT #: PROGRESS Observed: 10/03/2018 Status: COMPLETED Source: [place] 3:32 PM [facility] [place] REPOSITORY HNO ID: [id number] Author: Mercedes Fraser Service: Psychiatry Author Type: Physician Type: Progress Notes Filed: 10/03/2018 3:38 PM Note Text: PROGRESS NOTE BEHAVIORAL HEALTH SERVICE DATE: 10/03/2018 SERVICE TIME: 3:35 PM The Interdisciplinary team met and reviewed treatment goals and discharge planning. Subjective Patient seen in follow up for bipolar depression. Chart reviewed. Discussed with staff. Compliant with care. Taking scheduled medications. Attending groups. On evaluation today, she reports tolerating her medications. Some improvement in depression but still having occasional suicidal thoughts without any significant intent or plan. Reports sleep is appropriate. Still endorsing some feelings of restlessness believes this has improved with the change in her Risperdal dosage. No manic or psychotic symptoms voiced. No homicidal ideations. No side effects to medications. Objective PHYSICAL EXAM: BP 128/86 Pulse 82 Temp 36.6 ?C (97.9 ?F) (Oral) Resp 18 Ht 170.2 cm (5' 7) Wt 69.9 kg (154 lb) SpO2 97% BMI 24.12 kg/m? MENTAL STATUS EXAMINATION: Appearance: Casually dressed and Appears stated age Behavior: Appropriate Orientation: Person, Place, Time and Situation Speech/Language: The patient demonstrates appropriate tone, prosody, lita, phonetics, and syntax Mood/Affect: Depressed and Flat Thought Form: Coherent and Logical Thought Content: Coherent Logical Suicidal Ideations: Thoughts of suicide, no intent or plan. Homicidal Ideations: No homicidal ideation, intent or plan. Insight: Fair Judgment: Limited Memory/Cognition: Intact Psychomotor: Retarded NEW PROBLEMS ON UNIT SINCE LAST ENCOUNTER: None Current hospital medications: lamoTRIgine 25 mg tab(s) (LaMICtal) 25 mg ORAL BID risperiDONE 1 mg tab(s) (RisperDAL) 1 mg ORAL AT BEDTIME Lip Protectant with Sunscreen SPF 15 1 application Stick (Blistex) 1 application TOPICAL PRN benzocaine-menthol 1 Lozenge (CEPACOL) 1 Lozenge MUCOUS MEMBRANE (TOPICAL MOUTH AND THROAT) q 2 H PRN acetaminophen 650 mg tab(s) (TYLENOL) 650 mg ORAL q 6 H PRN aluminum-magnesium hydroxide-simethicone 200-200-20 mg/5 mL 30 mL (MAALOX,MYLANTA,MAG-AL PLUS) 30 mL ORAL q 4 H PRN magnesium hydroxide 400 mg/5 mL 30 mL (MOM) 30 mL ORAL DAILY PRN pantoprazole DR 40 mg tab(s) (PROTONIX) 40 mg ORAL DAILY (6 AM) lithium carbonate ER 300 mg tab(s) 300 mg ORAL DAILY lithium carbonate ER 600 mg tab(s) 600 mg ORAL AT BEDTIME melatonin 6 mg tab(s) 6 mg ORAL AT BEDTIME hydrOXYzine HCl 50 mg tab(s) (ATARAX) 50 mg ORAL QID PRN DATA: Diagnostic tests reviewed for today's visit: Most recent labs Assessment/Plan DIAGNOSIS: 1. PRIMARY: Mood Disorder Bipolar I Disorder, Most Recent Episode Depressed Severe Without Psychotic Features RISK ASSESSMENT: Suicide: moderate Homicide: low Deliberate Self-Harm: moderate Aggression: low Imminent Physical Self Impairment: low INFORMED CONSENT: Yes, completed with the Patient. Discussed the risks, benefits and alternatives to the medication(s) recommended. Consent was given. INTERVENTION: Biological: Increase lamotrigine to 25 mg twice daily. Decrease risperidone dose to 1 mg at bedtime. Psychological: Continue groups Social: Discharge planning DISCHARGE PLANNING: When stable SIGNATURE: Mercedes Fraser MD PATIENT NAME: Ramya Marquez DATE: October 03, 2018 TIME: 3:35 PM PAGER/CONTACT#: [phone] ALLIED HEALTH Observed: 10/03/2018 Status: COMPLETED Source: [place] 1:31 PM [facility] [place] REPOSITORY HNO ID: [id number] Author: Rossana Ortiz (Therapist) Jhonathan Service: (none) Author Type: Therapist Type: Allied Health Filed: 10/03/2018 1:32 PM Note Text: PROGRESS NOTE BEHAVIORAL HEALTH Topic of Note: Group Participation SERVICE DATE: 10/03/2018 SERVICE TIME: 11:03-11:28 A-Pt stated that they are feeling hopeful. Pt presented with moderate level of energy and flat affect. Pt actively participated in activity and discussion. -I- Facilitated group re: emotions. Therapist provided opportunity to express thoughts and feelings. -E- Pt. could benefit from continued support, talking about thoughts and feelings in group and a opportunity to learn positive coping skills. SIGNATURE: Rossana Ring, Adjunctive Therapist PATIENT NAME: Ramya Marquez DATE: October 03, 2018 TIME: 1:32 PM PAGER/CONTACT #: ALLIED HEALTH Observed: 10/03/2018 Status: COMPLETED Source: [place] 1:23 PM [facility] [place] REPOSITORY HNO ID: [id number] Author: Cristel (Therapist) Yodit Service: (none) Author Type: Therapist Type: Allied Health Filed: 10/03/2018 1:26 PM Note Text: PROGRESS NOTE BEHAVIORAL HEALTH Topic of Note: Group Participation SERVICE DATE: 10/03/2018 SERVICE TIME: [id number] A- Pt stated she is feeling hopeful, less slowed down, less down. He presented with moderate level of energy and flat?affect. Pt was pleasant, cooperative and actively participated in activity but not in?discussion. -I- Facilitated group re: [place]. Therapist provided opportunity to process thoughts and feelings. -E- Pt. could benefit from continued support, talking about thoughts and feelings in group and an opportunity to learn positive coping skills SIGNATURE: Cristel Monisvais, Therapist PATIENT NAME: Ramya Marquez DATE: October 03, 2018 TIME: 1:23 PM PAGER/CONTACT #: NURSING PROG Observed: 10/03/2018 Status: COMPLETED Source: [place] 8:30 AM [facility] OTHER CAMPUS REPOSITORY HNO ID: [id number] Author: Mahsa BuiRn) JACY Mays Service: Nursing Author Type: Registered Nurse Type: Nursing Progress Note Filed: 10/03/2018 1:32 PM Note Text: Nursing Progress Note Patient Name: Ramya Marquez Patient Location: [place] [address]/[place] [address]* Daily Note: Patient resting in bed, reading. Patient states she slept better last night than she did the previous night, reports eating well. Patient denies SI, HI, AH, VH at this time. Patient reports feeling better in her mood today, reports feeling less down. Patient denies anxiety at this time. Patient states she is able to concentrate more today, states she is enjoying reading. Patient denies pain at this time. Patient agrees to seek out RN or staff with questions/needs/concerns. Will continue to monitor. This note was completed by: Mahsa Mays RN LITHIUM SERUM Collected: 10/03/2018 Status: F Source: [facility] 6:20 AM HEALTH SYSTEM REPOSITORY TYPE CODE TESTS RESULT OUT OF REFERENCE UNITS RANGE LAB LITH(LOINC) 0.6-1.2 mEq/L Pierpoint Serum 0.8 Performed By: #### LITH #### [facility] [address] [address] NURSING PROG Observed: 10/02/2018 Status: COMPLETED Source: [place] 8:27 PM [facility] OTHER CAMPUS REPOSITORY HNO ID: [id number] Author: Bruce BuiRn) JACY Jaeger Service: Behavioral Health Author Type: Registered Nurse Type: Nursing Progress Note Filed: 10/03/2018 12:49 AM Note Text: Pt sitting up in bed reading; agrees to assessment. Pt A and Ox3; flat affect. Pt says she feels restless at times; currently bouncing her leg while sitting on side of bed. Rn informed pt that she is welcome to walk halls, use exercise bike in treatment room, or try stretching or exercises in room to help. Pt appears to give this some thought; says she will consider it to try tomorrow. Pt receptive to support and reassuance. Pt reports anxiety and depression at 6/10; denies HI or hallucinations. Pt maintains she has fleeting suicidal ideation throughout the day; able to distract self by reading or getting up out of bed and doing something as interventions. Pt verbalizes safety on unit. Pt denies having any physical complaints. RN reviewed w/ pt her scheduled and prn medications. Pt up to nurses station; took meds w/o incident. Pt denies having any other needs or complaints. RN reinforced w/ pt to notify Rn or staff about any needs or complaints. Pt agreeable. Pt excused herself to get snack in day area. RN will continue to monitor. TSH REFLEX Collected: 10/02/2018 Status: F Source: [facility] 4:20 PM HEALTH SYSTEM REPOSITORY TYPE CODE TESTS RESULT OUT OF REFERENCE UNITS RANGE LAB TSHR(LOINC) 0.358-3.740 uIU/mL TSH Reflex 3.320 Result Comment: Free T4 reflexed if TSH is less than or greater than the reference range. Performed By: #### TSHR #### [place] [address] ALLIED HEALTH Observed: 10/02/2018 Status: COMPLETED Source: [place] 3:41 PM CL[facility] OTHER CAMPUS REPOSITORY HNO ID: [id number] Author: Cristel (Therapist) Yodit Service: (none) Author Type: Therapist Type: Allied Health Filed: 10/02/2018 3:42 PM Note Text: PROGRESS NOTE BEHAVIORAL HEALTH Topic of Note: Group Participation SERVICE DATE: 10/02/2018 SERVICE TIME: [id number] ? A- Pt presented with moderate level of energy and flat?affect. Pt joined the group late and actively participated in activity, but not in discussion. -I- Facilitated group re: Art for relaxation and coping/ Open prcoessing. Therapist provided opportunity to process thoughts and feelings. -E- Pt. could benefit from continued support, talking about thoughts and feelings in group and an opportunity to learn positive coping skills ? SIGNATURE: Cristel Monsivais, Therapist PATIENT NAME: Ramya Marquez DATE: October 02, 2018 TIME: 3:41 PM PAGER/CONTACT #: HISTORY PHYSICAL Observed: 10/02/2018 Status: COMPLETED Source: [place] 3:10 PM CLINIC OTHER CAMPUS REPOSITORY [facility] ID: [id number] Author: Mercedes Fraser Service: Psychiatry Author Type: Physician Type: HANDP Filed: 10/02/2018 3:25 PM Note Text: HISTORY AND PHYSICAL BEHAVIORAL HEALTH SERVICE DATE: 10/02/2018 SERVICE TIME: 1300 IDENTIFYING INFORMATION: Ramya Marquez is a 28 year old unemployed female who lives with her parents in [place]. REASON FOR ADMISSION: Depression and Suicidal ideation Subjective HPI: Ramya presents for admission secondary to worsening and depression. She has a prior history of bipolar disorder. She informed her mother of her suicidal thoughts with plan to cut her wrists. She arrived to the ED voluntarily. On evaluation she reports a depressed mood since the end of her last manic episode several weeks ago. She was hospitalized at that time and started on risperidone 4mg and her lithium was increased as well. She reports that she has been compliant with these medications since her discharge. She feels her mood worsened several days ago following a visit from her longtime boyfriend who lives in [place]. She moved back to [place] from [place] and in with her parents last month due to her medical and psychiatric issues. She reports feeling as though her risperdal dosage is too high, as she feels restless and oversleeps. STRESSORS: separation from boyfriend; unemployment. PSYCHIATRIC REVIEW OF SYMPTOMS: Depression: + Depressed mood, + Sleep disturbance , + Decreased Interests, + Decreased energy and + Decreased Concentration with positive suicidal ideation Marcelo: Reports hx of 3 prior manic episodes with irritable moods, decreased need for sleep, hyperactivity, talkativeness, and racing thoughts Psychosis: Denies any auditory / visual hallucination or paranoid ideation. IVANIA: Denies any symptoms of IVANIA OCD: Denies any symptoms of OCD. PTSD: Denies any PTSD symptoms. MEDICAL REVIEW OF SYSTEMS: GENERAL: Negative for malaise, significant weight loss and fever. HEENT: No changes in hearing or vision, no nose bleeds or other nasal problems. RESPIRATORY: Negative for cough, wheezing and shortness of breath. CARDIOVASCULAR: Negative for chest pain, leg swelling and palpitations. GI: Negative for abdominal discomfort, blood in stools or black stools. : Negative for dysuria, frequency and incontinence. MUSCULOSKELETAL: Negative for joint pain or swelling, back pain, and muscle pain. SKIN: Negative for lesions, rash, and itching. HEMATOLOGY/LYMPHOLOGY Negative for prolonged bleeding, bruising easily, and swollen nodes. ENDOCRINE: Negative for cold or heat intolerance, polyuria, polydipsia and goiter. NEURO: Negative for headaches, syncope, seizures and paralysis. PSYCHIATRIC HISTORY: Prior Diagnosis: Bipolar Affective Disorder Current Psychiatrist: Fany Murillo at [facility] Current Therapist: none currently Current Plate Grainer Apprentice: none Last Hospitalization: 2 months ago in [place]; Total Hospitalizations: 5 beginning in 2012 History of Suicide Attempts: Total: denies; Methods: na Previous Discontinued Psychiatric Med Trials: Abilify, Celexa, Depakote, Klonopin, Lexapro, Prozac, Remeron and Trileptal PAST MEDICAL HISTORY Diagnosis Date - ALLERGIC RHINITIS NOS Allergic rhinitis - [id number], LMP started yesterday, sexually active using barriers PAST SURGICAL HISTORY Procedure Laterality Date - APPENDECTOMY - REMOVE TONSILS/ADENOIDS,<10 Y/O Tonsil/adenoidectomy HOME MEDICATIONS: Prescriptions Prior to Admission: esomeprazole (NEXIUM) 40 mg capsule Take 40 mg by mouth once daily. Disp: Rfl: lithium carbonate 600 mg capsule Take 600 mg by mouth daily at bedtime. Disp: Rfl: risperiDONE (RISPERDAL) 4 mg tablet Take 4 mg by mouth daily at bedtime. Disp: Rfl: MELATONIN 3MG TABLET PO Take 6 mg po qhs for two weeks and increase to 9 mg po qhs if needed Disp: Rfl: 0 paliperidone palmitate (INVEGA SUSTENNA) 156 mg/mL syrg Inject 156 mg intramuscularly one time only. Disp: Rfl: Not Taking traZODone (DESYREL) 50 mg tablet Take 50 mg by mouth at bedtime as needed. Disp: Rfl: Not Taking ZYRTEC 10MG TABLET Take one(1) tablet daily. (Patient not taking: Reported on 10/01/2018) Disp: Rfl: 0 Not Taking ZOMIG 2.5MG TABLET Take at onset severe headache and repeat in two hours if needed not to repeat more than twice a week (Patient not taking: Reported on 10/01/2018) Disp: Rfl: 0 Not Taking ELAVIL 10MG TABLET Start at 5 mg for 2 weeks then increase to 10 mg for 2 weeks, then by 10 mg every two weeks for goal 30 mg po qhs Disp: 30 Rfl: 6 MEDICATION ADHERENCE: Good SUBSTANCE ABUSE HISTORY: Tobacco: No history of use or dependence. ETOH: No history of abuse or dependence. ILLICIT SUBSTANCE USE: Cannabis use since age 16 - regular user but quit 7 weeks ago. Tried cocaine once. ALLERGIES Allergen Reactions - Animal Dander - Dust - Feathers - Mold - Phenothiazines phenegan-feeling nausea - Tricyclic Compounds pamelor-dizziness SOCIAL HISTORY: Born AND Raised in [place] by parents. Childhood: youngest of three sisters. Normal development. 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 Relationships: The patient currently is in a LTR of 12.5 years - boyfriend is addicted to pot Children: none Current Supports Include: spouse/partner and adult children. Legal History: denies Sabianist Affiliations: None FAMILY HISTORY: Depression (Sister), Anxiety (Father, Mother and Sister), Bipolar disorder (Sister and Maternal Grandfather) and Chemical dependency (Sister) Objective VITALS: BP 124/79 Pulse 83 Temp 36.5 ?C (97.7 ?F) (Oral) Resp 18 Ht 170.2 cm (5' 7) Wt 69.9 kg (154 lb) SpO2 97% BMI 24.12 kg/m? MENTAL STATUS EXAMINATION: Appearance: Well dressed, well groomed and Appears stated age Behavior: Appropriate Orientation: Person, Place, Time and Situation Speech/Language: Slow Mood/Affect: Distressed and Flat Thought Form: Coherent and Logical Thought Content: Coherent Logical Suicidal Ideations: Thoughts of suicide, no intent or plan. Homicidal Ideations: No homicidal ideation, intent or plan. Insight: Limited Judgment: Limited Memory/Cognition: Intact Psychomotor: Retarded PHYSICAL EXAM: Blood pressure 124/79, pulse 83, temperature 36.5 ?C (97.7 ?F), temperature source Oral, resp. rate 18, height 170.2 cm (5' 7), weight 69.9 kg (154 lb), SpO2 97 %. GENERAL: Alert, no distress, cooperative. NEUROLOGIC: No gross abnormal findings including cranial nerves 2-12. MUSCULOSKELETAL: Normal muscle strength, Normal muscle tone and No involuntary movements. GAIT: Normal. DATA: Diagnostic tests reviewed for today's visit: Most recent labs - CBC, BMP, tox screen, UA from receiving hospital reviewed - wnl CT Brain (if indicated): Not Indicated TOXICOLOGY RESULTS FOR THE PAST 72 HOURS: No results found for: WBC, HCT, PLT, NA, K, BUN, AST, ALT, TSH Assessment/Plan DIAGNOSIS: 1. PRIMARY: Mood Disorder Bipolar I Disorder, Most Recent Episode Depressed Severe Without Psychotic Features INFORMED CONSENT: Yes, completed with the Patient. Discussed the risks, benefits and alternatives to the medication(s) recommended. Consent was given. RISK ASSESSMENT: Suicide: Moderate Homicide: Low Deliberate Self-Harm: Moderate Aggression: Low Imminent Physical Self Impairment: Moderate PLAN: Medications: continue lithium. Decrease risperdal to 2mg QHS. Start lamictal 25mg QHS. Safety Precautions: level 2 Obtain Collateral From: outpatient psychiatry SIGNATURE: Mercedes Fraser MD PATIENT NAME: Ramya Marquez DATE: October 02, 2018 TIME: 3:10 PM PAGER/CONTACT#: [phone] ALLIED HEALTH Observed: 10/02/2018 Status: COMPLETED Source: [place] 1:52 PM [facility] OTHER [place] REPOSITORY HNO ID: [id number] Author: Cristel (Therapist) Yodit Service: (none) Author Type: Therapist Type: Allied Health Filed: 10/02/2018 1:57 PM Note Text: PROGRESS NOTE BEHAVIORAL HEALTH Topic of Note: Group Therapy Assessment SERVICE DATE: 10/02/2018 SERVICE TIME: Pt is a 28 yo female admitted due to SI. Current Stressors: Hx of bipolar DO and four previous psychiatric hospitalizations. Pt is appropriate for group and encouraged to attend. Pt could benefit from emotional support, processing thoughts and feelings in group and an opportunity to learn healthy coping skills. SIGNATURE: Chinyere Giang PATIENT NAME: Ramya Marquez DATE: October 02, 2018 TIME: 1:52 PM PAGER/CONTACT #: ALLIED HEALTH Observed: 10/02/2018 Status: COMPLETED Source: [place] 1:33 PM CLINIC OTHER [place] REPOSITORY HNO ID: [id number] Author: Cristel Gonzalez) Yodit Service: (none) Author Type: Therapist Type: Allied Health Filed: 10/02/2018 1:33 PM Note Text: PROGRESS NOTE BEHAVIORAL HEALTH Topic of Note: Group Participation SERVICE DATE: 10/02/2018 SERVICE TIME: 945-1030 ? A- Pt reported feeling ok. Pt presented with moderate level of energy and restricted affect. Pt actively participated in activity and discussion. -I- Facilitated group re: Group Process. Therapist provided opportunity to express thoughts and feelings. -E- Pt. could benefit from continued support, talking about thoughts and feelings in group and a opportunity to learn positive coping skills SIGNATURE: Cristel Monsivais Therapist PATIENT NAME: Ramya Marquez DATE: October 02, 2018 TIME: 1:33 PM PAGER/CONTACT #: ALLIED HEALTH Observed: 10/02/2018 Status: COMPLETED Source: [place] 12:41 PM [facility] OTHER [place] REPOSITORY HNO ID: [id number] Author: Rossana Ortiz (Therapist) Jhonathan Service: (none) Author Type: Therapist Type: Allied Health Filed: 10/02/2018 12:42 PM Note Text: PROGRESS NOTE BEHAVIORAL HEALTH Topic of Note: Group Participation SERVICE DATE: 10/02/2018 SERVICE TIME: 10:45-11:18 A-Pt stated that they are feeling slow and down. Pt presented with moderate level of energy and appropriate affect. Pt actively participated in activity and discussion. -I- Facilitated group re: mental health care. Therapist provided opportunity to express thoughts and feelings. -E- Pt. could benefit from continued support, talking about thoughts and feelings in group and a opportunity to learn positive coping skills SIGNATURE: Rossana Ring, Adjunctive Therapist PATIENT NAME: Ramya Marquez DATE: October 02, 2018 TIME: 12:41 PM PAGER/CONTACT #: SOCIAL WORK Observed: 10/02/2018 Status: COMPLETED Source: [place] 12:28 PM [facility] OTHER [place] REPOSITORY HNO ID: [id number] Author: Malou Mao (Sw) Service: Social Work Author Type: Sheet Finisher Type: Social Work Filed: 10/02/2018 12:38 PM Note Text: BEHAVIORAL HEALTH SOCIAL WORK/CARE MANAGEMENT ASSESSMENT AND DISCHARGE PLAN SERVICE DATE: 10/02/2018 SERVICE TIME: 1228 Reason for Admission: depression, hx marcelo, SI to cut wrists Legal Status: Voluntary Important Contacts: No contacts provided Does the patient/inbound sales representative consent to contact with the above at this time? Not Applicable Information obtained from: Chart Patient Referred by: Self Living Arrangements Prior to Admission: Relative's Home Prior to Admission, Patient was Living with: Parents Marital Status: Single , reports in fci relationship, he is still in [place] Children (including quality of relationship): Patient does not have any children Sexual Orientation: Heterosexual SOCIAL HISTORY Ramya Marquez was born and raised in [place], [place] by her biological parents. Her childhood is described as unknown. She has an unknown number of siblings. She has .. Abuse History (emotional, mental, physical, sexual, verbal, neglect, other): No, Patient/Demolition Expert Denies Education History: College Degree bachelors in french Support System: Family: parents Significant Other Employment Status: Unemployed, Not Seeking Work Financial Resources: Family Health Insurance: PRIMARY: [place] (Medicaid) Status (including history of combat experience): None Legal History: Patient/Demolition Expert Denies Buddhism/Spirituality: Unknown PSYCHIATRIC HISTORY: - Psychiatrist: alison [facility], [facility] Has Patient Been Hospitalized Previously for Psychiatric Reasons? Yes, and an Admission Was Within the Past 30 Days: Followed Up with Appointment Prior to Admission: Appointment completed What interventions might be used this admission to avoid future readmissions? Unknown at this time Substance Use and Treatment History: Patient/Demolition Expert Denies Do special considerations/accommodations need to be made (i.e. preferred language, literacy, gender identity, physical disability such as deaf or blind, etc)? No, Patient/Demolition Expert Denies Are there practices or beliefs that may affect or influence treatment? No, Patient/Demolition Expert Denies Patient Strengths/Protective Factors (Minimum of Two): Able to Communicate Needs Connected with Outpatient Providers Supportive Friends/Family FAMILY PSYCHIATRIC HISTORY Unknown DISCHARGE RECOMMENDATIONS: Relinkage With Previous Providers Patient/Demolition Expert Agreeable With Discharge Recommendations At This Time? Yes FREEDOM OF CHOICE EXPLAINED: na NEEDS PRIOR TO DISCHARGE: Waiting for: Psychiatric Stabilization OBSTACLES TO TREATMENT/POST-DISCHARGE CHALLENGES: None At This Time SUMMARY: pt admitted with increased depression and SI to cut wrists; pt with hx of psych admission 6 weeks ago in [place], after admission pt moved back to [place] with her parents; pt has been seen by the [facility] and is active with them for care; SW will follow for ongoing support and coordination of care needs SIGNATURE: ROBERTA DAI PATIENT NAME: Ramya Marquez DATE: October 02, 2018 TIME: 12:28 PM NURSING PROG Observed: 10/02/2018 Status: COMPLETED Source: [place] 10:30 AM CLINIC OTHER CAMPUS REPOSITORY [facility] ID: [id number] Author: Mahsa Jimenez (Rn) JACY Mays Service: Nursing Author Type: Registered Nurse Type: Nursing Progress Note Filed: 10/02/2018 11:13 AM Note Text: Nursing Progress Note Patient Name: Ramya Marquez Patient Location: [place] [address]/[place] [address]* Daily Note: Patient has been compliant with morning medications, states she was up and down a lot throughout the night. Patient reports her eating is okay. Patient and RN sit in chairs down back [facility] to speak. Patient reports that she has had a total of 3 manic episodes in her lifetime, all of which she reports required medical intervention. Patient states her most recent episode caused her to be hospitalized in [place] and subsequently to move back home to [place] to live with her parents. Patient reports being back in [place] for approximately 6 weeks. Patient states, after I have an episode of marcelo, I usually get really depressed. I was worried I might try to hurt myself, so I came into the hospital. Patient reports that during her admission in [place] the doctors made some dosage adjustments to her medications. Patient reports feeling not with it the majority of the time. Patient states, people tell my I seem slowed. Patient reports having difficulty concentrating, feeling lethargic but at the same time always anxious. 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 For young adults -- kind of a dystopia scenario, not unlike [employer]. 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 But it eventually got to be too stressful and I was having a lot of anxiety. Patient reports having difficulty filling my time since returning back to [place]. Patient reports trying to read, states she can barely make it through a sentence in a book without her mind wandering. Patient has flat affect throughout assessment, movements are slowed; however, patient appears to fidget as if she is anxious. Patient reports anxiety and depression 8/10. Denies HI, AH, VH. Patient states her mood, feelings of wanting to hurt herself, have not improved since admission. Patient states, I find that being here, trying to hurt myself would be nearly impossible. Patient able to contract for safety on the unit at this time. Patient encouraged to seek out RN or staff with questions/needs/concerns. Patient agrees to seek out RN directly should she feel unsafe on the unit or have thoughts or intentions of harming herself. Will continue to monitor. This note was completed by: Mahsa Mays RN NURSING PROG Observed: 10/01/2018 Status: COMPLETED Source: [place] 8:50 PM [facility] OTHER CAMPUS REPOSITORY HNO ID: [id number] Author: Bruce (Rn) JACY Jaeger Service: Behavioral Health Author Type: Registered Nurse Type: Nursing Progress Note Filed: 10/02/2018 12:44 AM Note Text: Pt up in her room; agrees to assessment. Pt is A and Ox3; pleasant, but sad. Pt reports anxiety and depression both at 8/10; reports fleeting passive SI, and agrees to remain safe on unit. Pt denies HI or any hallucinations. Pt denies having any physical complaints. Pt offers no new info during assessment, just reviewed w/ RN circumstances about her admission. Pt receptive to support and reassurance. RN and pt reviewed scheduled and prn medications, and pt took meds w/o incident. Pt denies having any other needs or complaints. RN reinforced w/ pt to notify RN or staff about any needs or concerns, and to attend therapeutic groups. Pt verbalized understanding. Pt getting ready for bed. RN will continue to monitor. NURSING PROG Observed: 10/01/2018 Status: COMPLETED Source: [place] 6:10 PM [facility] OTHER CAMPUS REPOSITORY [facility] ID: [id number] Author: Jolene (Rn) JACY Gallagher Service: Behavioral Health Author Type: Registered Nurse Type: Nursing Progress Note Filed: 10/01/2018 6:40 PM Note Text: Admission Note: Pt arrives to unit at 1743 via stretcher and EMS. Pt wand and Pt changed into unit approved clothing. Pt oriented to unit, room, and call light. Pt given welcome packet. Pt ordered dinner. Pt filled out menu for next day. Pt calm and cooperative with nursing assessment. Pt states I am here for suicidal ideation. Pt reports being maniac that then is followed by deep depression. Pt has a bachelor degree in [place]. Pt has had 4 previous psych admissions. 3 at [facility] and 1 at [facility]. All admissions for bipolar. Pt reports that this is the first time she has had suicidal thoughts. Pt denies self harm. Pt denies previous suicide attempts. Pt reports having 7/10 anxiety and 9/10 depression. Pt reports sleeping 12 hours a night and still not feeling rested. Pt denies all substance use. Pt lives at home with parents. Pt reports not being able to work at this time due to her mental illness. Pt verbalizes safety on unit. Nurse offered pt emotional support and reassurance. Pt encouraged to inform nurse of wants and needs. Will continue to monitor. EMERGENCY DEPARTMENT Observed: 10/01/2018 Status: F Source: SNOQUALMIE PASS SUMMARY 4:[address] [facility] REPOSITORY [facility] Medical Records Department [address] [place] [address] Emergency Department Summary 10/01/18 0957 MR#: [id number] Acct: [id number] Name: RAMYA MARQUEZ Rep #: [id number] : 1990 28 From: Yuniel Garsia MD PCP: Care Physician, No Primary Status: DEP ER - ER Visit Summary Date of Service: 10/01/18 Chief Complaint: Depressed and suicidal History of Present Illness: The patient is a 28 F history depression and bipolar disorder. Patient states she had exacerbation of bipolar about 6 weeks ago where she was manic and had to be hospitalized. Now she states she is depressed and suicidal. No specific inciting event. She has been depressed and suicidal before but is never had any prior attempts. States that she does think about it now but is made no attempt. She is currently on lithium and Risperdal and states she is taking her medications. She sees a counseling center. Physical Examination: Young female no acute distress. Vital signs are stable and afebrile. No signs of toxidrome. No smell of alcohol. She is lying in bed. She is not violent or verbally abusive. Family members in the room. HEENT exam unremarkable. No signs of trauma to her face. Moist mucous membranes. Neck nontender. No signs of ligature tubbs. Lungs clear to auscultation bilaterally. Chest nontender. Heart regular rate and rhythm no murmur. Abdomen soft nontender. Patient is moving all 4 extremities. Neurovascularly intact. Nontender no edema. No signs of track tubbs. No signs of cutting or trauma or scars. Back nontender. Neurologically she is awake and alert with no focal motor deficits. Test Results: ED mental health screening labs. CBC White count 6. Hemoglobin 9.8. Electrolytes unremarkable. Normal gap. Normal creatinine. Serum test negative. Tox and alcohol level are negative. Emergency Department Course and Treatment: ED mental health labs and crisis evaluation. Repeat exam patient is doing well 1144. She is already spoken with counseling center personnel and they believe she needs to be admitted. I am comfortable with that plan. Treatment Plan: Transfer to psychiatric facility. Disposition: [] Impression: Acute exacerbation of bipolar disorder Depression Suicidal ideation This note was generated with [employer]ing[employer]ant[employer] dictation software. It may contain incorrect words, spelling, and punctuation that were not noted in review of the chart prior to signing ED Disposition - Plan for ED Patient: Chief Complaint: Suicidal Referrals: Care Physician,No Primary [Primary Care Provider] - What to do if you have Problems For any increased pain, shortness of breath, bleeding, nausea or vomiting, chest pain, or any unexpected problems, contact your Primary Care Provider. Call [facility] ([phone]) or report to the closest Emergency Room. Call 911 if necessary. 10/01/18 7127 <Electronically signed by Yuniel Garsia MD> Date Yuniel Garsia MD Cosigner Signature (If Indicated): Date CC: No Primary Care Physician BASIC METABOLIC Collected: 10/01/2018 Status: F Source: AMY PROFILE (BMP) 10:[address] [facility] REPOSITORY TYPE CODE TESTS RESULT OUT OF RANGE REFERENCE UNITS LAB L501.0100 74-106 mg/dL Normal GLU 87 Result Comment: Please note revised GLUCOSE reference range effective 2017. LAB L501.1000 7-18 mg/dL Normal BUN 12 LAB L501.1100 0.55-1.02 mg/dL Normal CREAT,SERUM 0.71 Result Comment: The validity of the calculated GFR AND GFRAA in patients over 70 years has not been determined. Clinical correlation is essential. LAB L501.1110 >60 mL/min Normal EST GFR 103 Result Comment: Non- GFR Calc LAB L501.1115 >60 mL/min Normal EST GFR - AA 125 Result Comment: GFR Calc LAB L501.1255 ml/min Normal Estimated CRCL 112.67 LAB L501.1300 10-20 RATIO BUN/CRE Normal 17.0 LAB L501.2200 8.5-10 mg/dL .1 CA Normal 9.1 LAB L501.5300 136-14 mmol/L 5 NA Normal 141 LAB L501.5600 3.5-5. mmol/L 1 K Normal 4.1 LAB L501.5900 98-107 mmol/L High CL 110 LAB L501.6100 21.0-3 mmol/L 2.0 CO2 Normal 25.0 LAB L501.6200 5-15 GAP Normal 6 Performed By: #### L500.2500 #### [facility] [address] [place], [place], [id number] CBC W/DIFF, AUTOMATED Collected: 10/01/2018 Status: F Source: AMY 10:[address] [facility] REPOSITORY TYPE CODE TESTS RESULT OUT OF RANGE REFERENCE UNITS LAB L100.1000 4.4-11.0 K/mm3 Normal WBC 6.2 LAB L100.1200 4.2-5.4 M/mm3 Normal RBC 4.28 LAB L100.1300 12.0-15.0 g/dl Low HGB 11.8 LAB L100.1400 37-47 % Normal HCT 37.6 LAB L100.1500 81-99 fL Normal MCV 87.9 LAB L100.1600 27.0-32.0 pg Normal MCH 27.6 LAB L100.1700 32-36 g/gl Low MCHC 31.4 LAB L100.1810 11.6-14.6 % Normal RDW CV 14.5 LAB L100.1820 35.1-43.9 fl High RDW SD 46.4 LAB L100.1900 150-450 K/mm3 Normal PLT 346 LAB L100.2000 6.2-12.0 fl Normal MPV 9.5 LAB L100.2100 47-70 % Normal NEUT% 68.0 LAB L100.2200 19-41 % Normal LY% 23.1 LAB L100.2300 0-10 % Normal MONO% 6.5 LAB L100.2400 0-5 % Normal EO% 1.6 LAB L100.2500 0-1 % Normal BASO% 0.6 LAB L100.2550 0.0-0.9 % Normal IM GRAN % 0.200 Result Comment: IG% - Immature Granulocytes (promyelocytes, myelocytes and metamyelocytes) > 1% indicates that a LEFT SHIFT is Present. LAB L100.2620 2.0-7.7 X10 3/uL Normal Absolute Neut 4.2 LAB L100.2720 0.83-4.51 X10 3/ul Normal Absolute Lymph 1.43 Performed By: #### L100.0100 #### [facility] [address] [place], [address] ,SERUM,HCG QUALI. Collected: Status: F Source: SNOQUALMIE PASS 10/01/2018 10:[address] [facility] REPOSITORY TYPE CODE TESTS RESULT OUT OF REFERENCE UNITS RANGE LAB L700.7000 0-9 Nonpreg Negative Normal HCGSQUAL NEGATIVE LAB L700.6700 =>Qualitative mIU/mL Normal HCG Qual < 1 triggr Performed By: #### L700.6800 #### [facility] [address] [place], [place], [id number] ALCOHOL, BLOOD Collected: 10/01/2018 Status: F Source: AMY (MEDICAL)-SERUM 10:[address] [facility] REPOSITORY TYPE CODE TESTS RESULT OUT OF RANGE REFERENCE UNITS LAB L501.9100 mg/dL Normal SERUM 12.0 ETOH Result Comment: The serum:whole blood ethanol ratio is approximately 1.14 and varies slightly with hematocrit. Medical Alcohol reference interval and critical value in non-tolerant individuals; 50 - 100 Impairment 100 Intoxication 100 - 250 Severe Poisoning 250 - 400 Deep/possible fatal coma Performed By: #### L501.9100 #### [facility] [address] [place], [place], [address] URINE DRUG SCREEN Collected: 10/01/2018 Status: F Source: AMY (VISTA) 10:[address] [facility] REPOSITORY TYPE CODE TESTS RESULT OUT OF RANGE REFERENCE UNITS LAB L505.0075 TO BE Normal CONFIRMED Result Comment: CONFIRMATORY TESTING FOR ALL POSITIVE URINE DRUG SCREEN RESULTS WILL ONLY BE SENT OUT UPON PHYSICIAN ORDER. VISTA Urine Drug Screen methods provide only preliminary analytical test results. A more specific alternate chemical method must be used in order to obtain a confirmed analytical result. Gas chromatography/mass spectrometery (GC/MS) is the preferred confirmatory method. Clinical consideration and professional judgement should be applied to any drug of abuse test result, particularly when preliminary positive results are used. URINE TCA TESTING MUST BE ORDERED SEPARATELY. USE TEST MNEMONIC: [facility]CA LAB L505.5005 VISTA UDS PH 7 Normal LAB L505.5015 <1000 ng/mL AMPHETAMINES Normal NEGATIVE LAB L505.5025 < 200 ng/mL BARBITIURATES Normal NEGATIVE LAB L505.5035 < 200 ng/mL BENZODIAZIPINE Normal NEGATIVE LAB L505.5045 < 300 ng/mL COCAINE Normal NEGATIVE LAB L505.5055 < 500 ng/mL ECSTACY Normal NEGATIVE LAB L505.5065 < 300 ng/mL METHADONE Normal NEGATIVE LAB L505.5075 < 300 ng/mL OPIATES Normal NEGATIVE LAB L505.5085 < 25 ng/mL PCP Normal NEGATIVE LAB L505.5095 < 50 ng/mL THC Normal NEGATIVE Performed By: #### L505.5000 #### [facility] [address] [place], [place], [id number] LITHIUM Collected: 10/01/2018 Status: F Source: SNOQUALMIE PASS 10:[address] [facility] REPOSITORY TYPE CODE TESTS RESULT OUT OF RANGE REFERENCE UNITS LAB L501.9060 0.60-1.20 mmol/L Normal LI 0.80 Performed By: #### L501.9060 #### [facility] [address] [place], [address] EMERGENCY DEPARTMENT Observed: 08/17/2018 Status: F Source: SNOQUALMIE PASS SUMMARY 1:[address] [facility] REPOSITORY [facility] Medical Records Department [address] [place] [address] Emergency Department Summary 08/16/188 MR#: [id number] Acct: [id number] Name: RAMYA MARQUEZ Rep #: [id number] : 1990 28 From: Keke Clemons MD PCP: Care Physician, No Primary Status: DEP ER - ER Visit Summary Date of Service: 08/16/18 Chief Complaint: Sinus problems History of Present Illness: The patient is a 28 F with a history of bipolar disorder. Patient was discharged from a [facility] in [place] last week. She presents feeling tired, congestion, difficulty breathing through her nose, and increased salivation in her mouth. She is also complaining of her neck feeling weak. Patient states while in the hospital her lithium dose was decreased. She was also started on Invega, Risperdal, and trazodone. She is not sure if she has a sinus infection or if this is potentially side effects of her medication. She is scheduled to see the counseling center next week. She has not had fever or chills. Physical Examination: Blood pressure is 152/86, other vitals normal. Patient is lying in bed. She is in no acute distress. Head neck examination reveals TMs to be clear bilaterally. She has moist mucous membranes. No cervical lymphadenopathy. No significant tenderness over the sinuses. Heart is regular rate and rhythm. Lungs sounds are clear. Abdomen is soft nontender. Test Results: CBC was normal white count with hemoglobin 10.7. Chemistry studies normal. LFTs and lipase normal. Urinalysis normal. test negative. Pierpoint level is 0.20. Emergency Department Course and Treatment: I did review the common side effects of the medications she is currently on. Multiple of these medications cause somnolence, URI symptoms, and sialorrhea. I advised her I do not believe she is an acute sinus infection, but is experiencing some side effects of her new medications. She will be given nasal spray to help open her nasal passages. She is to follow-up with the counseling center this week as planned. Treatment Plan: [] Disposition: Discharge Impression: 1. Viral URI 2. Medication side effects This note was generated with [employer] Pharm[employer]ation software. It may contain incorrect words, spelling, and punctuation that were not noted in review of the chart prior to signing ED Disposition - Plan for ED Patient: Disposition: Home or Assisted Living Chief Complaint: Cold Sx Instructions: ED Drug React Adverse Other, ED URI Viral Referrals: Counseling,Center [GROUP OF PHYSICIANS] - Keep Waqas appointment What to do if you have Problems For any increased pain, shortness of breath, bleeding, nausea or vomiting, chest pain, or any unexpected problems, contact your Primary Care Provider. Call [facility] ([phone]) or report to the closest Emergency Room. Call 911 if necessary. 08/17/18 0147 <Electronically signed by Keke Clemons MD> Date Keke Clemons MD Cosigner Signature (If Indicated): Date CC: No Primary Care Physician DISCHARGE INSTRUCTION Observed: 08/16/2018 Status: F Source: AMY 9:[address] [facility] REPOSITORY [facility] Medical Records Department [address] [place] [address] Discharge Instruction 08/16/182127 MR#: [id number] Acct: [id number] Name: RAMYA MARQUEZ Rep #: [id number] : 1990 28 From: Keke Clemons MD PCP: Care Physician, No Primary Status: REG ER ED Disposition - Plan for ED Patient: Disposition: Home or Assisted Living Chief Complaint: Cold Sx Instructions: ED URI Viral, ED Drug React Adverse Other Referrals: Counseling,Center [GROUP OF PHYSICIANS] - Keep Waqas appointment What to do if you have Problems For any increased pain, shortness of breath, bleeding, nausea or vomiting, chest pain, or any unexpected problems, contact your Primary Care Provider. Call [facility] ([phone]) or report to the closest Emergency Room. Call 911 if necessary. 08/16/182128 <Electronically signed by Keke Clemons MD> Date Keke Clemons MD Cosigner Signature (If Indicated): Date CC: No Primary Care Physician URINALYSIS, COMPLETE Collected: 08/16/2018 Status: F Source: AMY 8:[address] [facility] REPOSITORY Order Comment: Order Date: 08/16/18 How was Urine Obtained? CLEAN CATCH TYPE CODE TESTS RESULT OUT OF RANGE REFERENCE UNITS LAB L400.3000 Yellow COLOR Normal Yellow LAB L400.3050 Clear Normal CLARITY Sl. Cloudy LAB L400.3200 Normal mg/dl Normal GLUCOSE, UR Normal LAB L400.3300 Negative mg/dL Normal BILIRUBIN URINE Negative LAB L400.3400 Negative mg/dl Normal KETONE UR Negative LAB L400.3465 1.002-1.030 Normal SP.GR. DIPSTX 1.005 LAB L400.3550 5.0 - 8.0 pH UR Normal 7.0 LAB L400.3600 Negative mg/dl PROT Normal DIPSTX Negative LAB L400.3700 Normal mg/dl Normal UROBILI Normal LAB L400.3750 Negative Normal NITRITE UR Negative LAB L400.3780 Negative /ul Normal OCCULT BLOOD-UR Negative LAB L400.3800 Negative /ul High LEUK 25 ESTERASE LAB L400.4050 0-5 /hpf WBC Normal 0-5 SEEN LAB L400.4100 0-5 /hpf 0 Normal RBC-UA SEEN LAB L400.4150 5-10 /hpf SQUAM Normal EPI 0-5 SEEN LAB L400.4300 None Seen /hpf 0 Normal BACTERIA SEEN LAB L400.4350 <or=2+ /hpf 0 Normal MUCUS, URINE SEEN Performed By: #### L400.0001 #### [facility] [address] [place], [address] CBC W/DIFF, AUTOMATED Collected: 08/16/2018 Status: F Source: AMY 8:[address] [facility] REPOSITORY TYPE CODE TESTS RESULT OUT OF RANGE REFERENCE UNITS LAB L100.1000 4.4-11.0 K/mm3 Normal WBC 6.7 LAB L100.1200 4.2-5.4 M/mm3 Low RBC 3.84 LAB L100.1300 12.0-15.0 g/dl Low HGB 10.7 LAB L100.1400 37-47 % Low HCT 34.0 LAB L100.1500 81-99 fL Normal MCV 88.5 LAB L100.1600 27.0-32.0 pg Normal MCH 27.9 LAB L100.1700 32-36 g/gl Low MCHC 31.5 LAB L100.1810 11.6-14.6 % High RDW CV 14.7 LAB L100.1820 35.1-43.9 fl High RDW SD 46.6 LAB L100.1900 150-450 K/mm3 Normal PLT 384 LAB L100.2000 6.2-12.0 fl Normal MPV 10.1 LAB L100.2100 47-70 % Normal NEUT% 58.8 LAB L100.2200 19-41 % Normal LY% 31.7 LAB L100.2300 0-10 % Normal MONO% 6.9 LAB L100.2400 0-5 % Normal EO% 1.9 LAB L100.2500 0-1 % Normal BASO% 0.4 LAB L100.2550 0.0-0.9 % Normal IM GRAN % 0.300 Result Comment: IG% - Immature Granulocytes (promyelocytes, myelocytes and metamyelocytes) > 1% indicates that a LEFT SHIFT is Present. LAB L100.2620 2.0-7.7 X10 3/uL Normal Absolute Neut 3.9 LAB L100.2720 0.83-4.51 X10 3/ul Normal Absolute Lymph 2.12 Performed By: #### L100.0100 #### [facility] [address] [place], [place], [id number] BASIC METABOLIC Collected: 08/16/2018 Status: F Source: AMY PROFILE (BMP) 8:[address] [facility] REPOSITORY TYPE CODE TESTS RESULT OUT OF RANGE REFERENCE UNITS LAB L501.0100 74-106 mg/dL Normal GLU 96 Result Comment: Please note revised GLUCOSE reference range effective 2017. LAB L501.1000 7-18 mg/dL Normal BUN 12 LAB L501.1100 0.55-1.02 mg/dL Normal CREAT,SERUM 0.65 Result Comment: The validity of the calculated GFR AND GFRAA in patients over 70 years has not been determined. Clinical correlation is essential. LAB L501.1110 >60 mL/min Normal EST GFR 114 Result Comment: Non- GFR Calc LAB L501.1115 >60 mL/min Normal EST GFR - AA 138 Result Comment: GFR Calc LAB L501.1255 ml/min Normal Estimated CRCL 123.07 LAB L501.1300 10-20 RATIO BUN/CRE Normal 18.6 LAB L501.2200 8.5-10 mg/dL .1 CA Normal 8.5 LAB L501.5300 136-14 mmol/L 5 NA Normal 139 LAB L501.5600 3.5-5. mmol/L 1 K Normal 3.9 LAB L501.5900 98-107 mmol/L High CL 108 LAB L501.6100 21.0-3 mmol/L 2.0 CO2 Normal 24.0 LAB L501.6200 5-15 GAP Normal 7 Performed By: #### L500.2500, L500.3400 #### [facility] [address] [place], [place], [address] LIVER PROFILE Collected: 08/16/2018 Status: F Source: AMY 8:[address] [facility] REPOSITORY TYPE CODE TESTS RESULT OUT OF RANGE REFERENCE UNITS LAB L501.1500 6.4-8.2 g/dL Normal T PROT 6.5 LAB L501.1800 3.2-5.0 g/dL Normal ALB 3.4 LAB L501.1950 2.2-4.2 g/dL Normal GLOB 3.1 LAB L501.4100 15-37 U/L Normal AST 15 LAB L501.4305 45-117 U/L Normal ALK P 54 LAB L501.4405 13-56 U/L Normal ALT 20 LAB L501.4600 0.20-1.00 mg/dL Normal T BILI 0.20 LAB L501.4700 0.00-0.30 mg/dL Normal D BILI 0.07 Performed By: #### L500.2500, L500.3400 #### [facility] [address] [place], [address] ,SERUM,HCG QUALI. Collected: Status: F Source: SNOQUALMIE PASS 08/16/2018 8:[address] [facility] REPOSITORY TYPE CODE TESTS RESULT OUT OF REFERENCE UNITS RANGE LAB L700.7000 0-9 Nonpreg Negative Normal HCGSQUAL NEGATIVE LAB L700.6700 =>Qualitative mIU/mL Normal HCG Qual < 1 triggr Performed By: #### L700.6800 #### [facility] [address] [place], [address] LITHIUM Collected: 08/16/2018 Status: F Source: SNOQUALMIE PASS 8:[address] [facility] REPOSITORY TYPE CODE TESTS RESULT OUT OF RANGE REFERENCE UNITS LAB L501.9060 0.60-1.20 mmol/L Low LI 0.20 Result Comment: Moderate Hemolysis, Result may be falsely increased. Performed By: #### L501.9060 #### [facility] [address] [place], [address] ALLERGIES ALLERGIES DATE TYPE / NAME / CODE REACTION SEVERITY SOURCE CODE 10/01/2018 Drug No Known Unknown [place] Allergy/41 Allergies/[id number] [id number]( (RXNORM) [facility]) Repository 02/10/2004 DRUG ANIMAL DANDER [facility] INGREDI/ Other [place] [id number]( Repository [facility]) 02/10/2004 Environ/42 DUST [facility] [id number]( Other [facility]) Repository 02/10/2004 [facility] [place] [id number](SN Repository OMED CT) 02/10/2004 DRUG MOLD [facility] INGREDI/41 Other [place] [id number](SN Repository OMED CT) 02/10/2004 Drug PHENOTHIAZINES [facility] Class/4195 Other [place] [address](SNOM Repository ED CT) 02/10/2004 Drug TRICYCLIC COMPOUNDS [facility] Class/4195 Other [place] [address]38(SNOM Repository ED CT) NG/[id number] ANIMAL DANDER [facility] 06(SNOMED [facility]) Repository NG/7753396 DUST [facility] 06(SNOMED [facility]) Repository NG/7697375 FEATHERS [facility] 06(SNOMED [facility]) Repository NG/5530610 MOLD [facility] 06(SNOMED [facility]) Repository NG/[id number] PHENOTHIAZINES [facility] 06(SNOMED [facility]) Repository NG/3964792 TRICYCLIC COMPOUNDS [facility] 06(SNOMED [facility]) Repository ENCOUNTERS ENCOUNTERS ADMIT/DISCHARGE ACCOUNT NUMBER ADMITTING ENCOUNTER LOCATION SOURCE CLASS 10/15/2018 [id number] [facility] ding:BHIOP Repository 10/01/2018/10/08/19 [id number] PITTINGER, Inpatient [place] 19 RUPINDER A Encounter Clinic Other [place] Repository 10/01/2018/10/08/19 [id number] PITTING[place], Inpatient AKRON [facility] 19 RUPINDER Encounter [facility] MEDICAL Repository CENTERBuildi nRoom: 6417Bed: 02 10/01/2018/10/01/19 [id number] Emergency [address] ding:ED Repository 10/01/[id number] Laura Inpatient [facility] Reji K Encounter [facility] Repository 08/16/2018/08/16/20 [id number] Emergency [address] ding:ED Repository PAYERS PAYERS ENCOUNTER GUARANTOR PAYER SUBSCRIBER SOURCE 10/15/2018 RAMYA Zaragoza Primary RAMYA Reyes [id number] Insurance:MIAMI AMISHAB: [facility] [id number] Repository [id number]: [facility] [id number] [phone] (HP) Date:[id number] [address], [place] [address]PZ: 10/15/2018 Secondary NOT GIVENUNK [place] Insurance:SELF PAY [facility] Number: Effective Repository Date:2018-10-14 10/01/2018 RAMYA L Primary RAMYA L [facility] KARGERDOB: Insurance:[facility]: [facility] [id number] ADVANTAGE [id number] Repository [place] Number: [address]Wkf: 330 [id number] [phone] (HP) Date: 10/01/2018 RAMYA L Primary RAMYA L [place] [id number] Insurance:[facility]: [facility] [id number], [place] Number: Repository [id number]: 330 [id number] [phone] (HP) Date:1702-31-27CY [address] [place] [id number]: 10/01/2018 Secondary NOT GIVENUNK [place] Insurance:SELF PAY [facility] Number: Effective Repository Date:2018-10-01 10/01/2018 [facility]: [place] Number: [id number] [facility] [id number] [place] Repository Date:[place], [place] [facility] [address]Uoe: (330) PayBonesteel, [place] [phone] (HP) [address]II: 08/16/2018 RAMYA L Primary RAMYA L [place] [id number] Insurance:[facility]: Community [place] FIRST MEDICAIDPolicy [id number] Number: Repository [id number]: 330 [id number] [phone] (HP) Date:2281-44-68MBVHRG FIRST CLAIMS [facility] [address] [address]ZS: 08/16/2018 Secondary NOT GIVENUNK Amy Insurance:SELF PAY [facility] Number: Effective Repository Date:2018-08-16
== END 2018-10-23 23:59 ==
LOC: BHIOP 09:00
PROVIDERS: Family Provider Nurse Practitioner Family; PCP Nurse Practitioner Family; Referring Provider Psychiatry & Neurology Psychiatry; Visit Provider Psychiatry & Neurology Psychiatry
DX: F31.75 Bipolar disorder, in partial remission, most recent episode depressed (principal); F12.11 Cannabis abuse, in remission
CPT/HCPCS: 99204; H0035; H2012; H2020; 90832

== ENCOUNTER → 2018-10-22 07:55 | Outpatient (CLI) | payer MEDICAID, SELFPAY ==
[2018-10-01 09:19] VITALS: BMI 23.8
--- NOTE | 2018-10-22 07:58 | US_ITS ---
STUDY: THYROID ULTRASOUND REASON FOR EXAM: Female, 28 years old. Nontoxic multinodular goiter. TECHNIQUE: Ultrasound evaluation of the thyroid was performed with real-time and static edmonds-scale imaging. COMPARISON: None. FINDINGS: RIGHT LOBE: The right lobe of the thyroid gland measures 5.6 x 2.0 x 1.8 cm. There is a heterogeneous echotexture. Lower pole solid nodule measuring 0.6 x 0.6 x 0.6 cm. LEFT LOBE: The left lobe of the thyroid gland measures 5.2 x 1.7 x 1.5 cm. There is a heterogeneous echotexture. Mid pole cystic nodule measuring 0.3 x 0.3 x 0.3 cm. ISTHMUS: The isthmus measures 3 mm which is within normal limits. . The regional lymph nodes are normal. US/Thyroid IMPRESSION: Thyromegaly. Subcentimeter solid nodule right lobe and cystic nodule left lobe. Electronically Signed: Omi Freeman MD at 2:43 EST , Service support ,
== END ==
DX: E04.9 Nontoxic goiter, unspecified (principal)
CPT/HCPCS: 76536

== ENCOUNTER → 2018-10-23 15:23 | Outpatient (CLI) | payer MEDICAID, SELFPAY ==
[2018-10-01 09:19] VITALS: BMI 23.8
[2018-10-28 08:47] LABS: HPV HC, High Risk Negative (Negative)
== END ==
PROVIDERS: Visit Provider Obstetrics & Gynecology
DX: Z12.4 Encounter for screening for malignant neoplasm of cervix (principal)
CPT/HCPCS: 87624; 88175; G0145

== ENCOUNTER 2018-11-24 06:00 | Day surgery (SDC) | payer MEDICAID, SELFPAY ==
[2018-11-17 13:01] VITALS: BMI 23.8
[2018-11-24 06:29] VITALS: BP 111/76; PULSE 73; RESP 16; TEMP 37.1; O2SAT 98; BMI 25.4
[2018-11-24 06:29] LABS: Internal QC Validated? YES +Cl - CLEAR BKGD; Pregnancy, Urine Negative Negative
--- NOTE | 2018-11-24 07:00 | EGD_PTH ---
PATIENT: RAMYA OLSON LOC: EN U#:[id number] AGE/SX: 28/F ROOM: RE11/24/[address]: Dr. Jose Daniel Painter MD : 1990 BED: DIS: 11/24/2018 SPEC #: [id number] RECD: 11/24/18 10:56 STATUS: THIAGO BERTO #: [id number] WANDA: 11/24/18 07:[address]: Jose Daniel Painter DEPT: SURGICAL PATHOLOGY RECD BY: Parviz Chand ENTERED: 11/24/18 14:24 SP TYPE: EGD BIOPSY OT DR: Michelle Chan, SA[facility] ARCHITECT-C [facility] Tissues: Gastric mucous membrane Procedures: Surgery Specimen Level IV HEADER OPERATION: [place] PRE-OP DIAGNOSIS: GERD TISSUE SUBMITTED: Antral biopsy for H. pylori and pathology MICROSCOPIC DIAGNOSIS Gastric antrum, biopsy: Mild chronic gastritis. See comment. AM:joey 11/25/18 COMMENT The results of immunohistochemistry for Helicobacter pylori will be reported separately ([id number]). MICROSCOPIC DESCRIPTION Slides are reviewed. GROSS DESCRIPTION Received in fixative is one container labeled with the patient's name and designated antral biopsy. The specimen consists of one irregular fragment of light brumfield soft tissue that measures 0.5 x 0.3 x 0.1 cm. The specimen is totally submitted in one cassette. / SJ:joey 11/24/18 TC:3 CPT: 48910
--- NOTE | 2018-11-24 07:00 | IMM_PTH ---
PATIENT: RAMYA OLSON LOC: EN U#:[id number] AGE/SX: 28/F ROOM: RE11/24/[address]: Dr. Jose Daniel Painter MD : 1990 BED: DIS: 11/24/2018 SPEC #: [id number] RECD: 11/24/18 14:43 STATUS: THIAGO REDinah #: [id number] WANDA: 11/24/18 07:[address]: Jose Daniel Painter DEPT: IMMUNOHISTOCHEMISTRY RECD BY: Dinah Perez ENTERED: 11/24/18 14:44 SP TYPE: IMMUNO OTHR DR: Michelle Chan, PECAN GROWER-C [facility] Tissues: Stomach, NOS Procedures: H Pylori (initial) PHYSICIAN & [place] [id number] SPECIMEN INFORMATION: Tissue Source: Antral biopsy Clinical Info: GERD Specimen Number: [id number] CPT code: 09720 METHODOLOGY: Deparaffinized sections of prefer/formalin-fixed tissue or PAP/DQ stained slides are incubated with monoclonal/polyclonal antibodies/oligonucleotide probes. Localization is made via biotin free immunoperoxidase method. Appropriate controls are performed and reacted as expected. Results on target cell population are indicated in the following table: RESULTS: ANTIBODY / CLONE RESULT H Pylori (polyclonal) negative These tests were developed and their performance characteristics determined by [facility]. They may not have been cleared or approved by the [place]. Food and Drug Administration. The FDA has determined that such clearance or approval is not necessary. INTERPRETATION: Antral biopsy: Negative for Helicobacter pylori organisms. AM:joey 11/25/18
--- NOTE | 2018-11-24 07:18 | OP.ENDO_ITS ---
11/24/2018 Janine Mensah [facility] Re : Upper GI endoscopy procedure for Alexandra Aparicio [facility] This procedure was performed on Saturday, November 24, 2018. My impressions and recommendations are as follows: Impressions : - Z-line regular, 46 cm from the incisors. - Normal esophagus. - Normal stomach. Biopsied. - Normal examined duodenum. No specimens collected. Recommendations : - Discharge patient to home. - Resume previous diet. - Continue present medications. - Await pathology results. - Repeat upper endoscopy (date not yet determined). - Return to my office in 1 week. My findings are described in the full procedure note, which is enclosed. If I can be of further assistance, please feel free to contact me at Doctor phone number(s): , Fax: [phone], Work: . Sincerely, MD Jose Daniel Jernigan MD 11/24/2018 7:17:43 AM This report has been signed electronically.
[2018-11-24 07:19] VITALS: BP 111/76; BP 113/70; PULSE 72; RESP 16; TEMP 36.2; O2SAT 98
[2018-11-24 07:24] VITALS: BP 111/68; BP 111/76; PULSE 75; RESP 16; O2SAT 99
[2018-11-24 07:29] VITALS: BP 110/72; BP 111/76; PULSE 74; RESP 16; O2SAT 99
[2018-11-24 07:34] VITALS: BP 111/76; BP 116/75; PULSE 67; RESP 16; TEMP 36.8; O2SAT 99
[2018-11-24 07:55] VITALS: BP 111/76
== END 2018-11-24 07:56 | disposition home or self-care (01) ==
LOC: EN 06:00 → AC 06:01
PROVIDERS: Anesthesiology; Referring Provider Surgery; Visit Provider Surgery
PROC: 0DJ08ZZ Inspection of Upper Intestinal Tract, Via Natural or Artificial Opening Endoscopic (ICD-10-PCS; CPT 43235; principal; 2018-11-24 06:55)
DX: K21.9 Gastro-esophageal reflux disease without esophagitis (principal); K29.50 Unspecified chronic gastritis without bleeding; F31.9 Bipolar disorder, unspecified; F41.9 Anxiety disorder, unspecified; F12.90 Cannabis use, unspecified, uncomplicated; Z79.899 Other long term (current) drug therapy
CPT/HCPCS: 43239; 81025; 88305; 88342; J7120; J2405

== ENCOUNTER → 2018-12-04 10:15 | Outpatient (CLI) | payer MEDICAID, SELFPAY ==
[2018-11-24 06:29] VITALS: BMI 25.4
[2018-12-04 11:18] LABS: Hemoglobin A1c 5.2 % (4.2-6.3)
[2018-12-04 11:23] LABS: Follicle Stimulating Hormone 5.7 mIU/mL; Free T3 2.6 pg/mL (2.18-3.98); Glucose 87 mg/dL (74-106); Luteinizing Hormone 10.6 mIU/mL; Prolactin 65.4 ng/mL; T4 Free Direct 0.93 ng/dL (0.76-1.46); Thyroid Stim Hormone (TSH) 4.49 uIU/mL (0.358-3.74)
== END ==
PROVIDERS: Visit Provider Obstetrics & Gynecology
DX: N92.6 Irregular menstruation, unspecified (principal)
CPT/HCPCS: 36415; 82947; 83001; 83002; 83036; 84146; 84439; 84443; 84481

== ENCOUNTER → 2018-12-30 | Outpatient (CLI) | payer MEDICAID, SELFPAY ==
[2018-12-30 17:47] LABS: Free T3 2.2 pg/mL (2.18-3.98); Prolactin 21.4 ng/mL; T4 Free Direct 0.93 ng/dL (0.76-1.46)
== END | disposition home or self-care (01) ==
LOC: WOBLAB 14:38
PROVIDERS: Visit Provider Obstetrics & Gynecology
DX: N92.5 Other specified irregular menstruation (principal); E22.1 Hyperprolactinemia; R94.6 Abnormal results of thyroid function studies
CPT/HCPCS: 36415; 84146; 84439; 84443; 84481